=== PATIENT | male | born 1975 | race Two or more races ===

== ENCOUNTER 2024-11-22 12:23 | Inpatient (IN) | payer MEDICAID ==
[~2024-11-22] VITALS: Ht 177.8 cm; Wt 107.0 kg
[2024-11-22 13:18] LABS: BASOPHILS % (AUTO) 0.6 % (0.0-2.0); EOSINOPHILS # (AUTO) 0.1 K/uL (0.0-0.7); EOSINOPHILS % (AUTO) 1.2 % (0.0-6.0); HEMATOCRIT 50 % (39-51); LYMPHOCYTES # (AUTO) 1.3 K/uL (0.8-4.8); LYMPHOCYTES % (AUTO) 19.2 % (20.0-44.0); MEAN CORPUSCULAR HEMOGLOBIN 31 PG (26.0-33.0); MEAN CORPUSCULAR HGB CONC 34 g/dl (31.0-36.0); MEAN CORPUSCULAR VOLUME 90 fL (80-96); MONOCYTES # (AUTO) 0.7 K/uL (0.1-1.30); MONOCYTES % (AUTO) 9.3 % (2.0-12.0); NEUTROPHILS # (AUTO) 4.9 K/uL (1.8-8.9); NEUTROPHILS % (AUTO) 69.7 % (43.0-81.0); PLATELET COUNT (AUTO) 184 K/uL (150-450); RED BLOOD CELL COUNT(AUTO) 5.54 MIL/uL (4.5-6.0); RED CELL DISTRIBUTION WIDTH 15.5 % (11.5-15.0)
[2024-11-22 13:28] LABS: CALCIUM, SERUM 9.1 mg/dL (8.5-10.1); CARBON DIOXIDE 28 mmol/L (21-32); CHLORIDE 101 mmol/L (98-107); CREATININE 0.8 mg/dL (0.6-1.3); GLUCOSE 120 mg/dL (74-106); SODIUM SERUM 137 mmol/L (136-145); UREA NITROGEN, BLOOD 9 mg/dL (7-18)
[2024-11-22] MEDS: IV NS 0.9% 1,000 ML BAG IV ONE ×2 (13:30→14:30)
[2024-11-22 13:42] LABS: LACTIC ACID 4.3 mmol/L (0.4-2.0)
[2024-11-22 13:43] LABS: INR 1.21 (0.91-1.10); PROTHROMBIN TIME 12.4 SECS (9.2-11.1)
[2024-11-22 13:51] LABS: ALANINE AMINOTRANSFERASE 38 U/L (12-78); ALBUMIN 2.8 g/dL (3.4-5.0); ALKALINE PHOSPHATASE 126 U/L (46-116); ASPARTATE AMINOTRANSFERASE 34 U/L (15-37); BILIRUBIN,DIRECT 0.4 mg/dL (0.0-0.2); BILIRUBIN,TOTAL 1.3 mg/dL (0.2-1.0); TOTAL PROTEIN, SERUM 7.5 g/dL (6.4-8.2)
[2024-11-22] MEDS: AZITHROMYCIN 250 MG TABLET PO ONE (15:18)
[2024-11-22] MEDS ORDERED: MAG HYDROX/AL HYDROX/SIMETH 30 ML UDC PO PRN (17:00)
[2024-11-22] MEDS ORDERED: MAGNESIUM HYDROXIDE 30 ML UDC PO PRN (17:00)
[2024-11-22] MEDS: IV NS 0.9% 1,000 ML IV PRN (17:53)
[2024-11-22] MEDS: PROPRANOLOL HCL 10 MG TABLET PO SCH (17:54)
[2024-11-22] MEDS: ENOXAPARIN SODIUM 40 MG/0.4 ML DISP.SYRIN SQ SCH (17:55)
[2024-11-22 20:00] VITALS: BP 121/90; TEMP 97.7; O2SAT 93
[2024-11-23 04:00] VITALS: BP 122/88; TEMP 98.2; O2SAT 98
[2024-11-23 06:23] LABS: BASOPHILS % (AUTO) 0.6 % (0.0-2.0); EOSINOPHILS # (AUTO) 0.1 K/uL (0.0-0.7); EOSINOPHILS % (AUTO) 2.1 % (0.0-6.0); HEMATOCRIT 44 % (39-51); HEMOGLOBIN 14.9 g/dL (13.5-17.5); LYMPHOCYTES # (AUTO) 1.5 K/uL (0.8-4.8); LYMPHOCYTES % (AUTO) 22.6 % (20.0-44.0); MEAN CORPUSCULAR HEMOGLOBIN 30 PG (26.0-33.0); MEAN CORPUSCULAR HGB CONC 34 g/dl (31.0-36.0); MEAN CORPUSCULAR VOLUME 90 fL (80-96); MONOCYTES # (AUTO) 0.7 K/uL (0.1-1.30); MONOCYTES % (AUTO) 9.7 % (2.0-12.0); NEUTROPHILS # (AUTO) 4.4 K/uL (1.8-8.9); PLATELET COUNT (AUTO) 160 K/uL (150-450); RED BLOOD CELL COUNT(AUTO) 4.93 MIL/uL (4.5-6.0); RED CELL DISTRIBUTION WIDTH 14.9 % (11.5-15.0); WHITE BLOOD COUNT (AUTO) 6.8 K/uL (4.3-11.0)
[2024-11-23 06:52] LABS: CALCIUM, SERUM 8.4 mg/dL (8.5-10.1); CREATININE 0.7 mg/dL (0.6-1.3); MAGNESIUM 1.6 mg/dL (1.8-2.4)
[2024-11-23 08:00] VITALS: BP 114/79; TEMP 97.7; O2SAT 95
[2024-11-23 08:56] LABS: ALBUMIN 2.5 g/dL (3.4-5.0); BILIRUBIN,DIRECT 0.5 mg/dL (0.0-0.2); BILIRUBIN,TOTAL 1.5 mg/dL (0.2-1.0); TOTAL PROTEIN, SERUM 6.1 g/dL (6.4-8.2)
[2024-11-23] MEDS: MAGNESIUM OXIDE 400 MG TABLET PO ONE (09:01)
[2024-11-23 16:00] VITALS: BP 154/99; TEMP 97.5; O2SAT 94
[2024-11-23 20:00] VITALS: BP 130/90; TEMP 97.7; O2SAT 97
[2024-11-24] VITALS (7 sets, daily range): BP systolic 118–139; BP diastolic 78–94; TEMP 97.5–98.4; O2SAT 96–99
[2024-11-24 05:13] LABS: HBSAG SCREEN Negative (Negative); HEPATITIS A AB, IgM Negative (Negative); HEPATITIS B CORE AB, IgM Negative (Negative)
[2024-11-24] MEDS: IPRATROPIUM NEB FS 0.5 MG/2.5 ML AMPUL.NEB NEB PRN (10:21)
[2024-11-24] MEDS: ALBUTEROL FS 2.5 MG/0.5 ML VIAL.NEB NEB PRN (10:21)
[2024-11-24 12:08] LABS: THYROID STIMULATING HORMONE 2.42 uIU/mL (0.358-3.74)
[2024-11-24] MEDS: ACETAMINOPHEN 325 MG TABLET PO PRN (14:26)
[2024-11-24] MEDS ORDERED: PHENOL/SODIUM PHENOLATE 1 LOZ LOZENGE PO PRN (15:30)
[2024-11-24] MEDS: MENTHOL/CETYLPYRD (CEPACOL) 1 LOZ LOZENGE PO PRN (18:20)
[2024-11-25] VITALS (70 sets, daily range): BP systolic 49–155; BP diastolic 34–98; TEMP 97.9–98.1; O2SAT 94–100
[2024-11-25] MEDS: NOREPINEPHRINE 8 MG in IV D5W 242 ML IV PRN (08:20)
[2024-11-25 08:53] LABS: BASOPHILS # (AUTO) 0.1 K/uL (0.0-0.2); BASOPHILS % (AUTO) 0.6 % (0.0-2.0); HEMATOCRIT 50 % (39-51); HEMOGLOBIN 16.6 g/dL (13.5-17.5); LYMPHOCYTES # (AUTO) 0.4 K/uL (0.8-4.8); LYMPHOCYTES % (AUTO) 3.9 % (20.0-44.0); MEAN CORPUSCULAR HEMOGLOBIN 30 PG (26.0-33.0); MEAN CORPUSCULAR HGB CONC 33 g/dl (31.0-36.0); MEAN CORPUSCULAR VOLUME 90 fL (80-96); MONOCYTES # (AUTO) 0.7 K/uL (0.1-1.30); MONOCYTES % (AUTO) 6.3 % (2.0-12.0); NEUTROPHILS # (AUTO) 10.2 K/uL (1.8-8.9); NEUTROPHILS % (AUTO) 89.2 % (43.0-81.0); PLATELET COUNT (AUTO) 299 K/uL (150-450); RED BLOOD CELL COUNT(AUTO) 5.59 MIL/uL (4.5-6.0); RED CELL DISTRIBUTION WIDTH 15.1 % (11.5-15.0); WHITE BLOOD COUNT (AUTO) 11.4 K/uL (4.3-11.0)
[2024-11-25 09:01] LABS: CALCIUM, SERUM 9.1 mg/dL (8.5-10.1); POTASSIUM 6.1 mmol/L (3.5-5.1)
[2024-11-25 09:03] LABS: ERYTHROCYTE SEDIMENTATION RATE 14 MM/HR (0-15)
[2024-11-25 09:13] LABS: ALBUMIN 2.7 g/dL (3.4-5.0); BILIRUBIN,DIRECT 0.5 mg/dL (0.0-0.2); BILIRUBIN,TOTAL 1.1 mg/dL (0.2-1.0); TOTAL PROTEIN, SERUM 6.9 g/dL (6.4-8.2)
[2024-11-25] MEDS ORDERED: ALBUTEROL FS 2.5 MG/0.5 ML VIAL.NEB NEB PRN (10:00)
[2024-11-25] MEDS ORDERED: IPRATROPIUM NEB FS 0.5 MG/2.5 ML AMPUL.NEB NEB PRN (10:00)
[2024-11-25 10:02] LABS: ABG PCO2 30.5 mmHg (35.0-48.0); ABG PO2 55.1 mmHg (83.0-108.0); ABG TOTAL HEMOGLOBIN 17.2 G/dL (13.5-17.5); COHb 0.4 % (0.5-1.5); MetHb 0.2 % (0.0-1.5); O2Hb 93.4 % (94.0-97.0); PEEP,BG 0 cm H2O; SITE, ABG RIGHT RADIAL; VT, ABG 500 mL
[2024-11-25 10:02] LABS: ABG BASE EXCESS -0.3 mmol/L (-2.0-3.0); ABG BASE EXCESS -1.5 mmol/L (-2.0-3.0); ABG OXYGEN SATURATION 97.6 % (94.0-98.0); ABG OXYGEN SATURATION 98.8 % (94.0-98.0); ABG PCO2 160.1 mmHg (35.0-48.0); ABG PCO2 46.2 mmHg (35.0-48.0); ABG PH 7.344 (7.350-7.450); ABG PO2 128.2 mmHg (83.0-108.0); ABG PO2 160.2 mmHg (83.0-108.0); ABG TOTAL HEMOGLOBIN 17.4 G/dL (13.5-17.5); COHb 0.2 % (0.5-1.5); COHb 0.4 % (0.5-1.5); MetHb 0.4 % (0.0-1.5); MetHb 0.5 % (0.0-1.5); O2Hb 96.9 % (94.0-97.0); SITE, ABG LEFT RADIAL; SITE, ABG RIGHT RADIAL
[2024-11-25] MEDS: FUROSEMIDE 40 MG/4 ML VIAL IV SCH (10:55)
[2024-11-25 11:03] LABS: SERUM AMMONIA 31 umol/L (11-32)
[2024-11-25 11:04] LABS: CALCIUM, SERUM 8.8 mg/dL (8.5-10.1); CREATININE 0.9 mg/dL (0.6-1.3); POTASSIUM 4.5 mmol/L (3.5-5.1)
[2024-11-25] MEDS: IPRATROPIUM NEB FS 0.5 MG/2.5 ML AMPUL.NEB NEB SCH (11:14)
[2024-11-25] MEDS: ALBUTEROL HALF STRENGTH 1.25 MG/3 ML VIAL.NEB NEB SCH (11:14)
[2024-11-25] MEDS: methylPREDNISolone SOD SUCC 125 MG/2ML VIAL IV ONE (11:19)
[2024-11-25] MEDS ORDERED: MAGNESIUM HYDROXIDE 30 ML UDC GT PRN (12:24)
[2024-11-25] MEDS ORDERED: MAG HYDROX/AL HYDROX/SIMETH 30 ML UDC GT PRN (12:24)
[2024-11-25] MEDS ORDERED: PHARMACY TO CHANGE PO MEDS TO GT/NG XX PRN (12:30)
[2024-11-25] MEDS ORDERED: ACETAMINOPHEN 650 MG/20.3 ML UDC PO PRN (12:30)
[2024-11-25] MEDS ORDERED: ETOMIDATE 2 MG/ML VIAL IV ONE (12:51)
[2024-11-25 13:17] LABS: THYROID STIMULATING HORMONE 0.9 uIU/mL (0.358-3.74)
[2024-11-25 15:02] LABS: ABG BASE EXCESS 1.5 mmol/L (-2.0-3.0); ABG OXYGEN SATURATION 97.9 % (94.0-98.0); ABG PCO2 44.1 mmHg (35.0-48.0); ABG PH 7.401 (7.350-7.450); ABG TOTAL HEMOGLOBIN 17.3 G/dL (13.5-17.5); COHb 0.3 % (0.5-1.5); MetHb 0.3 % (0.0-1.5); O2Hb 97.3 % (94.0-97.0); PEEP,BG 8 cm H2O; SITE, ABG RIGHT RADIAL; VT, ABG 500 mL
[2024-11-25] MEDS: methylPREDNISolone SOD SUCC 125 MG/2ML VIAL IV SCH (16:53)
[2024-11-25] MEDS: PROPOFOL 100 ML IV PRN (20:04)
[2024-11-25] MEDS: PROPRANOLOL HCL 10 MG TABLET GT SCH (20:47)
[2024-11-26] VITALS (84 sets, daily range): BP systolic 69–122; BP diastolic 58–92; TEMP 96.5–99.2; O2SAT 95–100
[2024-11-26 04:40] LABS: BASOPHILS % (AUTO) 0.1 % (0.0-2.0); CALCIUM, SERUM 9.4 mg/dL (8.5-10.1); CREATININE 1.1 mg/dL (0.6-1.3); HEMATOCRIT 45 % (39-51); HEMOGLOBIN 15.2 g/dL (13.5-17.5); LYMPHOCYTES # (AUTO) 0.8 K/uL (0.8-4.8); MEAN CORPUSCULAR HEMOGLOBIN 31 PG (26.0-33.0); MEAN CORPUSCULAR HGB CONC 34 g/dl (31.0-36.0); MEAN CORPUSCULAR VOLUME 89 fL (80-96); MONOCYTES # (AUTO) 1.2 K/uL (0.1-1.30); MONOCYTES % (AUTO) 6.3 % (2.0-12.0); NEUTROPHILS # (AUTO) 17.6 K/uL (1.8-8.9); NEUTROPHILS % (AUTO) 89.6 % (43.0-81.0); PHOSPHORUS 2.7 mg/dL (2.5-4.9); PLATELET COUNT (AUTO) 225 K/uL (150-450); POTASSIUM 3.8 mmol/L (3.5-5.1); RED CELL DISTRIBUTION WIDTH 15.2 % (11.5-15.0); WHITE BLOOD COUNT (AUTO) 19.7 K/uL (4.3-11.0)
[2024-11-26 08:08] LABS: ABG BASE EXCESS 3.7 mmol/L (-2.0-3.0); ABG OXYGEN SATURATION 98.1 % (94.0-98.0); ABG PCO2 36.8 mmHg (35.0-48.0); ABG PH 7.483 (7.350-7.450); ABG PO2 105.1 mmHg (83.0-108.0); ABG TOTAL HEMOGLOBIN 16.3 G/dL (13.5-17.5); COHb 0.3 % (0.5-1.5); MetHb 0.4 % (0.0-1.5); O2Hb 97.4 % (94.0-97.0); PEEP,BG 5 cm H2O; SITE, ABG RIGHT RADIAL
[2024-11-26] MEDS ORDERED: DC PROPOFOL WHEN EXTUBATED XX PRN (08:45)
[2024-11-26] MEDS: CEFEPIME 2 GM in IV D5W 100 ML IV SCH (10:53)
[2024-11-26 11:17] LABS: ABG BASE EXCESS -0.8 mmol/L (-2.0-3.0); ABG OXYGEN SATURATION 97.6 % (94.0-98.0); ABG PCO2 190.3 mmHg (35.0-48.0); ABG PH 6.932 (7.350-7.450); ABG PO2 154.8 mmHg (83.0-108.0); ABG TOTAL HEMOGLOBIN 17.7 G/dL (13.5-17.5); COHb 0.3 % (0.5-1.5); MetHb 0.7 % (0.0-1.5); O2Hb 96.6 % (94.0-97.0); SITE, ABG RIGHT RADIAL
[2024-11-26] MEDS ORDERED: ETOMIDATE 2 MG/ML VIAL IV ONE (12:57)
[2024-11-26 14:16] LABS: ABG BASE EXCESS 6.7 mmol/L (-2.0-3.0); ABG PCO2 31.8 mmHg (35.0-48.0); ABG PH 7.567 (7.350-7.450); ABG PO2 79.2 mmHg (83.0-108.0); ABG TOTAL HEMOGLOBIN 16.3 G/dL (13.5-17.5); COHb 0.5 % (0.5-1.5); MetHb 0.2 % (0.0-1.5); O2Hb 96.3 % (94.0-97.0); PEEP,BG 5 cm H2O; SITE, ABG RIGHT RADIAL; VT, ABG 500 mL
[2024-11-26] MEDS: pyRIDostigmine BROMIDE 60 MG TABLET GT SCH (18:34)
[2024-11-27] VITALS (84 sets, daily range): BP systolic 85–117; BP diastolic 53–72; TEMP 98.6–99.8; O2SAT 85–100
[2024-11-27 01:07] LABS: FOLIC ACID 4.5 ng/mL (>3.0)
[2024-11-27 05:26] LABS: NEUTROPHILS % (AUTO) 92.4 % (43.0-81.0)
[2024-11-27 05:29] LABS: BASOPHILS # (AUTO) 0.1 K/uL (0.0-0.2); BASOPHILS % (AUTO) 0.7 % (0.0-2.0); HEMATOCRIT 41 % (39-51); HEMOGLOBIN 13.7 g/dL (13.5-17.5); LYMPHOCYTES # (AUTO) 0.5 K/uL (0.8-4.8); LYMPHOCYTES % (AUTO) 2.9 % (20.0-44.0); MEAN CORPUSCULAR HEMOGLOBIN 30 PG (26.0-33.0); MEAN CORPUSCULAR HGB CONC 34 g/dl (31.0-36.0); MEAN CORPUSCULAR VOLUME 89 fL (80-96); MONOCYTES # (AUTO) 0.7 K/uL (0.1-1.30); NEUTROPHILS # (AUTO) 16.3 K/uL (1.8-8.9); PLATELET COUNT (AUTO) 135 K/uL (150-450); RED BLOOD CELL COUNT(AUTO) 4.56 MIL/uL (4.5-6.0); RED CELL DISTRIBUTION WIDTH 15.3 % (11.5-15.0); WHITE BLOOD COUNT (AUTO) 17.6 K/uL (4.3-11.0)
[2024-11-27 05:35] LABS: CALCIUM, SERUM 8.9 mg/dL (8.5-10.1); CREATININE 0.9 mg/dL (0.6-1.3); MAGNESIUM 2.4 mg/dL (1.8-2.4); PHOSPHORUS 1.8 mg/dL (2.5-4.9); POTASSIUM 3.8 mmol/L (3.5-5.1)
[2024-11-27 07:26] LABS: ABG OXYGEN SATURATION 98.1 % (94.0-98.0); ABG PH 7.492 (7.350-7.450); ABG PO2 108.1 mmHg (83.0-108.0); ABG TOTAL HEMOGLOBIN 14.8 G/dL (13.5-17.5); COHb 0.3 % (0.5-1.5); MetHb 0.2 % (0.0-1.5); O2Hb 97.6 % (94.0-97.0); PEEP,BG 5 cm H2O; SITE, ABG LEFT RADIAL; VT, ABG 500 mL
[2024-11-27] MEDS: IV D5/ 0.9% NACL 1,000 ML IV PRN (09:13)
[2024-11-27] MEDS ORDERED: IGA AVG IV SCH ×2 (12:00→12:56)
[2024-11-27] MEDS ORDERED: GLY IV SCH ×2 (12:00→12:56)
[2024-11-27] MEDS ORDERED: IMMUNE GLOBUL IV SCH ×2 (12:00→12:56)
[2024-11-27] MEDS: GLY IV SCH (13:11)
[2024-11-27] MEDS: IMMUNE GLOBUL IV SCH (13:11)
[2024-11-27] MEDS: IGA AVG IV SCH (13:11)
[2024-11-27] MEDS: JEVITY 1.2 CAL 1,000 ML BOTTLE GT PRN (13:29)
[2024-11-27 14:11] LABS: *ANA ANTI-CENTROMERE B AB <0.2 AI (0.0-0.9); *ANA ANTI-DNA(DS) AB, QN <1 IU/mL (0-9); *ANA ANTI-JO-1 <0.2 AI (0.0-0.9); *ANA ANTICHROMATIN ANTIBODY <0.2 AI (0.0-0.9); *ANA RNP ANTIBODIES <0.2 AI (0.0-0.9); *ANA SJOGREN'S ANTI-SS-A <0.2 AI (0.0-0.9); *ANA SJOGREN'S ANTI-SS-B <0.2 AI (0.0-0.9); *ANAANTI-SCLERODERMA-70 AB <0.2 AI (0.0-0.9); *ANASMITH AB <0.2 AI (0.0-0.9)
[2024-11-27] MEDS: NEUTRA PHOS 1 POWD.PACKET NG ONE (16:21)
[2024-11-27] MEDS ORDERED: PROPOFOL 100 ML IV PRN (19:00)
[2024-11-27 20:14] LABS: ABG BASE EXCESS 3.2 mmol/L (-2.0-3.0); ABG PCO2 37.3 mmHg (35.0-48.0); ABG PH 7.474 (7.350-7.450); ABG PO2 177.7 mmHg (83.0-108.0); ABG TOTAL HEMOGLOBIN 13.2 G/dL (13.5-17.5); COHb 0.2 % (0.5-1.5); MetHb 0.2 % (0.0-1.5); O2Hb 98.6 % (94.0-97.0); PEEP,BG 8 cm H2O; SITE, ABG RIGHT BRACHIAL; VT, ABG 500 mL
[2024-11-28] VITALS (29 sets, daily range): BP systolic 91–109; BP diastolic 58–74; TEMP 97.4–99.8; O2SAT 98–100
[2024-11-28 04:05] LABS: BASOPHILS % (AUTO) 0.2 % (0.0-2.0); HEMATOCRIT 38 % (39-51); HEMOGLOBIN 12.9 g/dL (13.5-17.5); LYMPHOCYTES # (AUTO) 0.2 K/uL (0.8-4.8); LYMPHOCYTES % (AUTO) 2.8 % (20.0-44.0); MEAN CORPUSCULAR HEMOGLOBIN 30 PG (26.0-33.0); MEAN CORPUSCULAR HGB CONC 34 g/dl (31.0-36.0); MEAN CORPUSCULAR VOLUME 90 fL (80-96); MONOCYTES # (AUTO) 0.5 K/uL (0.1-1.30); MONOCYTES % (AUTO) 5.8 % (2.0-12.0); NEUTROPHILS # (AUTO) 7.9 K/uL (1.8-8.9); NEUTROPHILS % (AUTO) 91.2 % (43.0-81.0); PLATELET COUNT (AUTO) 87 K/uL (150-450); RED BLOOD CELL COUNT(AUTO) 4.27 MIL/uL (4.5-6.0); RED CELL DISTRIBUTION WIDTH 14.9 % (11.5-15.0); WHITE BLOOD COUNT (AUTO) 8.7 K/uL (4.3-11.0)
[2024-11-28 04:27] LABS: CALCIUM, SERUM 8.6 mg/dL (8.5-10.1); CREATININE 0.7 mg/dL (0.6-1.3); MAGNESIUM 2.6 mg/dL (1.8-2.4); PHOSPHORUS 2.6 mg/dL (2.5-4.9); POTASSIUM 3.8 mmol/L (3.5-5.1)
[2024-11-28 04:42] LABS: BASOPHILS % (MANUAL) 0 % (0.0-2.0); EOSINOPHILS % (MANUAL) 0 % (0-4); LYMPHOCYTES % (MANUAL) 5 % (16-48); MONOCYTES % (MANUAL) 8 % (0-11.0); NEUTROPHILS % (MANUAL) 87 (42-76); PLATELET ESTIMATE DECREASED
[2024-11-29] VITALS (24 sets, daily range): BP systolic 86–112; BP diastolic 55–73; TEMP 97.2–98.5; O2SAT 96–100
[2024-11-29 04:40] LABS: BASOPHILS % (AUTO) 0.2 % (0.0-2.0); HEMATOCRIT 35 % (39-51); HEMOGLOBIN 11.9 g/dL (13.5-17.5); LYMPHOCYTES # (AUTO) 0.3 K/uL (0.8-4.8); LYMPHOCYTES % (AUTO) 3.5 % (20.0-44.0); MEAN CORPUSCULAR HEMOGLOBIN 31 PG (26.0-33.0); MEAN CORPUSCULAR HGB CONC 34 g/dl (31.0-36.0); MEAN CORPUSCULAR VOLUME 90 fL (80-96); MONOCYTES # (AUTO) 0.5 K/uL (0.1-1.30); MONOCYTES % (AUTO) 6.4 % (2.0-12.0); NEUTROPHILS # (AUTO) 6.7 K/uL (1.8-8.9); NEUTROPHILS % (AUTO) 89.9 % (43.0-81.0); PLATELET COUNT (AUTO) 79 K/uL (150-450); RED BLOOD CELL COUNT(AUTO) 3.85 MIL/uL (4.5-6.0); RED CELL DISTRIBUTION WIDTH 14.9 % (11.5-15.0); WHITE BLOOD COUNT (AUTO) 7.4 K/uL (4.3-11.0)
[2024-11-29 04:48] LABS: CALCIUM, SERUM 8.5 mg/dL (8.5-10.1); CREATININE 0.8 mg/dL (0.6-1.3); MAGNESIUM 2.4 mg/dL (1.8-2.4); PHOSPHORUS 2.6 mg/dL (2.5-4.9); POTASSIUM 3.8 mmol/L (3.5-5.1)
[2024-11-29 06:16] LABS: ANISOCYTOSIS 1+; BASOPHILS % (MANUAL) 0 % (0.0-2.0); EOSINOPHILS % (MANUAL) 0 % (0-4); LYMPHOCYTES % (MANUAL) 6 % (16-48); MONOCYTES % (MANUAL) 10 % (0-11.0); NEUTROPHILS % (MANUAL) 84 (42-76); PLATELET ESTIMATE DECREASED
[2024-11-29 08:09] LABS: IMMUNOGLOBULIN A, SERUM 275 mg/dL (90-386); IMMUNOGLOBULIN G, SERUM 1740 mg/dL (603-1613); IMMUNOGLOBULIN M, SERUM 226 mg/dL (20-172)
[2024-11-29] MEDS: IGA AVG IV SCH (21:00)
[2024-11-29] MEDS: GLY IV SCH (21:00)
[2024-11-29] MEDS: IMMUNE GLOBUL IV SCH (21:00)
[2024-11-30] VITALS (24 sets, daily range): BP systolic 85–122; BP diastolic 55–71; TEMP 98.1–98.7; O2SAT 96–99
[2024-11-30 10:34] LABS: ABG BASE EXCESS 3.2 mmol/L (-2.0-3.0); ABG OXYGEN SATURATION 95.6 % (94.0-98.0); ABG PCO2 28.6 mmHg (35.0-48.0); ABG PH 7.555 (7.350-7.450); ABG PO2 75.1 mmHg (83.0-108.0); ABG TOTAL HEMOGLOBIN 12.4 G/dL (13.5-17.5); COHb 0.3 % (0.5-1.5); MetHb 0.2 % (0.0-1.5); O2Hb 95.1 % (94.0-97.0); PEEP,BG 5 cm H2O; SITE, ABG RIGHT RADIAL
[2024-11-30 14:28] LABS: ABG BASE EXCESS 2.3 mmol/L (-2.0-3.0); ABG OXYGEN SATURATION 95.6 % (94.0-98.0); ABG PCO2 32.2 mmHg (35.0-48.0); ABG PH 7.506 (7.350-7.450); ABG PO2 79.4 mmHg (83.0-108.0); ABG TOTAL HEMOGLOBIN 12.2 G/dL (13.5-17.5); COHb 0.3 % (0.5-1.5); MetHb 0.3 % (0.0-1.5); PEEP,BG 5 cm H2O; SITE, ABG RIGHT RADIAL
[2024-11-30] MEDS: IMMUNE GLOBUL IV SCH (15:44)
[2024-11-30] MEDS: IGA AVG IV SCH (15:44)
[2024-11-30] MEDS: GLY IV SCH (15:44)
[2024-11-30 20:07] LABS: VITAMIN B1 THIAMINE,WB 121.5 nmol/L (66.5-200.0)
[2024-12-01] VITALS (24 sets, daily range): BP systolic 94–128; BP diastolic 58–93; TEMP 97.9–98.5; O2SAT 90–100
[2024-12-01] MEDS: IGA AVG IV SCH (09:32)
[2024-12-01] MEDS: IMMUNE GLOBUL IV SCH (09:32)
[2024-12-01] MEDS: GLY IV SCH (09:32)
[2024-12-01] MEDS ORDERED: LACT-209 GT (14:37)
[2024-12-01] MEDS ORDERED: ENOX40DI SQ (14:37)
[2024-12-01] MEDS ORDERED: CEFE2FRO IV (14:37)
[2024-12-01] MEDS ORDERED: PROP10TA68 GT (14:37)
[2024-12-01] MEDS ORDERED: PYRI60TA2 GT (14:37)
[2024-12-01] MEDS ORDERED: METH125V14 IV (14:37)
[2024-12-02] VITALS (25 sets, daily range): BP systolic 92–118; BP diastolic 54–104; TEMP 97.7–98.4; O2SAT 94–100
[2024-12-03] VITALS (31 sets, daily range): BP systolic 67–120; BP diastolic 52–77; TEMP 98–98.6; O2SAT 96–100
[2024-12-03 05:27] LABS: BASOPHILS % (AUTO) 0.1 % (0.0-2.0); HEMATOCRIT 39 % (39-51); LYMPHOCYTES # (AUTO) 0.2 K/uL (0.8-4.8); LYMPHOCYTES % (AUTO) 2.4 % (20.0-44.0); MEAN CORPUSCULAR HEMOGLOBIN 31 PG (26.0-33.0); MEAN CORPUSCULAR HGB CONC 34 g/dl (31.0-36.0); MEAN CORPUSCULAR VOLUME 92 fL (80-96); MONOCYTES # (AUTO) 0.8 K/uL (0.1-1.30); MONOCYTES % (AUTO) 7.8 % (2.0-12.0); NEUTROPHILS # (AUTO) 9.1 K/uL (1.8-8.9); NEUTROPHILS % (AUTO) 89.7 % (43.0-81.0); PLATELET COUNT (AUTO) 85 K/uL (150-450); RED BLOOD CELL COUNT(AUTO) 4.17 MIL/uL (4.5-6.0); RED CELL DISTRIBUTION WIDTH 15.4 % (11.5-15.0); WHITE BLOOD COUNT (AUTO) 10.2 K/uL (4.3-11.0)
[2024-12-03 05:31] LABS: ANISOCYTOSIS 1+; BASOPHILS % (MANUAL) 0 % (0.0-2.0); EOSINOPHILS % (MANUAL) 0 % (0-4); LYMPHOCYTES % (MANUAL) 5 % (16-48); MONOCYTES % (MANUAL) 8 % (0-11.0); NEUTROPHILS % (MANUAL) 87 (42-76); PLATELET ESTIMATE DECREASED
[2024-12-03 05:59] LABS: CALCIUM, SERUM 7.9 mg/dL (8.5-10.1); CREATININE 0.6 mg/dL (0.6-1.3); MAGNESIUM 2.4 mg/dL (1.8-2.4); POTASSIUM 4.5 mmol/L (3.5-5.1)
[2024-12-03 13:33] LABS: ABG BASE EXCESS 0.9 mmol/L (-2.0-3.0); ABG PCO2 30.5 mmHg (35.0-48.0); ABG PH 7.502 (7.350-7.450); ABG PO2 110.1 mmHg (83.0-108.0); ABG TOTAL HEMOGLOBIN 11.8 G/dL (13.5-17.5); COHb 0.3 % (0.5-1.5); MetHb 0.1 % (0.0-1.5); O2Hb 97.6 % (94.0-97.0); SITE, ABG RIGHT RADIAL
[2024-12-03 13:34] LABS: ABG BASE EXCESS 1.2 mmol/L (-2.0-3.0); ABG OXYGEN SATURATION 98.1 % (94.0-98.0); ABG PCO2 32.5 mmHg (35.0-48.0); ABG PH 7.488 (7.350-7.450); ABG PO2 113.6 mmHg (83.0-108.0); ABG TOTAL HEMOGLOBIN 12.1 G/dL (13.5-17.5); COHb 0.3 % (0.5-1.5); MetHb 0.2 % (0.0-1.5); O2Hb 97.6 % (94.0-97.0)
[2024-12-03 16:20] LABS: ABG BASE EXCESS 0.5 mmol/L (-2.0-3.0); ABG OXYGEN SATURATION 96.5 % (94.0-98.0); ABG PCO2 36.8 mmHg (35.0-48.0); ABG PO2 94.1 mmHg (83.0-108.0); ABG TOTAL HEMOGLOBIN 12.1 G/dL (13.5-17.5); COHb 0.3 % (0.5-1.5); MetHb 0.3 % (0.0-1.5); O2Hb 95.9 % (94.0-97.0); SITE, ABG RIGHT RADIAL
[2024-12-03 22:10] LABS: VITAMIN B6 5.9 ug/L (3.4-65.2)
[2024-12-03] MEDS: NOREPINEPHRINE 8MG/250ML RTU 250 ML IV ONE (23:11)
[2024-12-03] MEDS: NOREPINEPHRINE 8 MG in IV D5W 242 ML IV PRN (23:14)
[2024-12-03] MEDS: ONDANSETRON HCL/PF 4 MG/2 ML VIAL IVP PRN (23:38)
[2024-12-04] VITALS (99 sets, daily range): BP systolic 47–146; BP diastolic 32–125; TEMP 97–97.8; O2SAT 95–100
[2024-12-04 03:58] LABS: HEMOGLOBIN 9.5 g/dL (13.5-17.5)
[2024-12-04] MEDS: NOREPINEPHRINE 8MG/250ML RTU 250 ML IV ONE (05:15)
[2024-12-04 08:29] LABS: CALCIUM, SERUM 7.8 mg/dL (8.5-10.1); CREATININE 1.1 mg/dL (0.6-1.3); MAGNESIUM 2.5 mg/dL (1.8-2.4); PHOSPHORUS 5.5 mg/dL (2.5-4.9); POTASSIUM 5.8 mmol/L (3.5-5.1)
[2024-12-04] MEDS: PANTOPRAZOLE 40 MG VIAL IV SCH ×2 (08:30→10:00)
[2024-12-04 08:38] LABS: BASOPHILS % (AUTO) 0.1 % (0.0-2.0); HEMATOCRIT 32 % (39-51); HEMOGLOBIN 10.6 g/dL (13.5-17.5); LYMPHOCYTES # (AUTO) 0.7 K/uL (0.8-4.8); LYMPHOCYTES % (AUTO) 1.6 % (20.0-44.0); MEAN CORPUSCULAR HEMOGLOBIN 30 PG (26.0-33.0); MEAN CORPUSCULAR HGB CONC 33 g/dl (31.0-36.0); MEAN CORPUSCULAR VOLUME 93 fL (80-96); MONOCYTES # (AUTO) 5.4 K/uL (0.1-1.30); MONOCYTES % (AUTO) 13.6 % (2.0-12.0); NEUTROPHILS # (AUTO) 33.9 K/uL (1.8-8.9); NEUTROPHILS % (AUTO) 84.7 % (43.0-81.0); PLATELET COUNT (AUTO) 312 K/uL (150-450); RED BLOOD CELL COUNT(AUTO) 3.49 MIL/uL (4.5-6.0); RED CELL DISTRIBUTION WIDTH 15.2 % (11.5-15.0)
[2024-12-04 09:33] LABS: ABG BASE EXCESS -1.8 mmol/L (-2.0-3.0); ABG OXYGEN SATURATION 95.7 % (94.0-98.0); ABG PCO2 36.3 mmHg (35.0-48.0); ABG PH 7.409 (7.350-7.450); ABG PO2 92.2 mmHg (83.0-108.0); COHb 0.2 % (0.5-1.5); MetHb 0.2 % (0.0-1.5); O2Hb 95.3 % (94.0-97.0); SITE, ABG LEFT RADIAL
[2024-12-04 09:52] LABS: LYMPHOCYTES % (MANUAL) 2 % (16-48); MONOCYTES % (MANUAL) 6 % (0-11.0); NEUTROPHILS % (MANUAL) 92 (42-76); PLATELET ESTIMATE ADEQUATE
[2024-12-04 09:53] LABS: ANISOCYTOSIS 1+
[2024-12-04] MEDS: IV NS 0.9% 500 ML IV ONE (10:19)
[2024-12-04] MEDS: VANCOMYCIN 1 GM in IV D5W 250 ML IV ONE (10:19)
[2024-12-04] MEDS ORDERED: FUROSEMIDE 40 MG/4 ML VIAL IV ONE (10:30)
[2024-12-04] MEDS: PEG 3350/NA SULF,BICARB,CL/KCL 4,000 ML BOTTLE PO ONE (11:00)
[2024-12-04] MEDS: PHENYLEPHRINE 100 MG in IV NS 0.9% 240 ML IV PRN (12:12)
[2024-12-04] MEDS: pyRIDostigmine BROMIDE 60 MG TABLET GT SCH (13:06)
[2024-12-04 13:19] LABS: BASOPHILS # (AUTO) 0.1 K/uL (0.0-0.2); BASOPHILS % (AUTO) 0.2 % (0.0-2.0); HEMATOCRIT 29 % (39-51); HEMOGLOBIN 9.6 g/dL (13.5-17.5); LYMPHOCYTES # (AUTO) 0.7 K/uL (0.8-4.8); LYMPHOCYTES % (AUTO) 1.6 % (20.0-44.0); MEAN CORPUSCULAR HEMOGLOBIN 30 PG (26.0-33.0); MEAN CORPUSCULAR HGB CONC 33 g/dl (31.0-36.0); MEAN CORPUSCULAR VOLUME 93 fL (80-96); MONOCYTES # (AUTO) 7.5 K/uL (0.1-1.30); MONOCYTES % (AUTO) 16.1 % (2.0-12.0); NEUTROPHILS # (AUTO) 38.3 K/uL (1.8-8.9); NEUTROPHILS % (AUTO) 82.1 % (43.0-81.0); PLATELET COUNT (AUTO) 293 K/uL (150-450); RED BLOOD CELL COUNT(AUTO) 3.15 MIL/uL (4.5-6.0); RED CELL DISTRIBUTION WIDTH 15.6 % (11.5-15.0)
[2024-12-04 13:33] LABS: CALCIUM, SERUM 7.7 mg/dL (8.5-10.1); CREATININE 1.5 mg/dL (0.6-1.3); POTASSIUM 6.1 mmol/L (3.5-5.1)
[2024-12-04 14:19] LABS: WHITE BLOOD COUNT (AUTO) 46.6 K/uL (4.3-11.0)
[2024-12-04 15:13] LABS: BAND % (MANUAL) 1 % (0.0-5.0); LYMPHOCYTES % (MANUAL) 3 % (16-48); MONOCYTES % (MANUAL) 9 % (0-11.0); NEUTROPHILS % (MANUAL) 87 (42-76); PLATELET ESTIMATE ADEQUATE
[2024-12-04 15:14] LABS: ANISOCYTOSIS 1+
[2024-12-04] MEDS: DEXTROSE 50%-WATER 50 ML DISP.SYRIN IV ONE (15:40)
[2024-12-04] MEDS: SODIUM BICARBONATE SYR 50 MEQ/50 ML DISP.SYRIN IV ONE (15:41)
[2024-12-04] MEDS: INSULIN REGULAR, HUMAN 100 UNIT/ML 10 ML VIAL IV ONE (15:42)
[2024-12-04] MEDS: CALCIUM CHLORIDE 1,000 MG/10 ML DISP.SYRIN IV ONE (15:42)
[2024-12-04] MEDS: PROPOFOL 100 ML IV PRN (16:20)
[2024-12-04] MEDS ORDERED: DEXTROSE 50%-WATER 50 ML DISP.SYRIN IV PRN (16:30)
[2024-12-04] MEDS: IV NS 0.9% 1,000 ML IV ONE (16:33)
[2024-12-04] MEDS ORDERED: Sodium Bicarbonate 100 MEQ in IV 1/2NS 1000 ML 1,000 ML IV PRN (17:00)
[2024-12-04] MEDS: INSULIN REGULAR, HUMAN 100 UNIT/ML 3 ML VIAL SQ PRN (17:10)
[2024-12-04 17:14] LABS: ABG BASE EXCESS -11.5 mmol/L (-2.0-3.0); ABG OXYGEN SATURATION 98.8 % (94.0-98.0); ABG PCO2 25.7 mmHg (35.0-48.0); ABG PH 7.323 (7.350-7.450); ABG PO2 231.7 mmHg (83.0-108.0); ABG TOTAL HEMOGLOBIN 10.4 G/dL (13.5-17.5); COHb 0.3 % (0.5-1.5); MetHb 0.4 % (0.0-1.5); O2Hb 98.1 % (94.0-97.0); SITE, ABG LEFT RADIAL; VT, ABG 500 mL
[2024-12-04] MEDS: Sodium Bicarbonate 100 MEQ in IV 1/2NS 1000 ML 1,000 ML IV SCH (17:40)
[2024-12-04] MEDS: BLOOD SUGAR DIAGNOSTIC 1 EACH STRIP IN SCH (17:51)
[2024-12-04] MEDS ORDERED: PHARMACY TO CHANGE PO MEDS TO GT/NG XX PRN (18:30)
[2024-12-04] MEDS ORDERED: ALBUTEROL FS 2.5 MG/0.5 ML VIAL.NEB NEB PRN (19:10)
[2024-12-04] MEDS ORDERED: PROPOFOL 200 MG/20 ML VIAL IV ONE (20:13)
[2024-12-04 20:18] LABS: CALCIUM, SERUM 8.3 mg/dL (8.5-10.1); CREATININE 1.4 mg/dL (0.6-1.3); POTASSIUM 5.2 mmol/L (3.5-5.1)
[2024-12-04] MEDS: VANCOMYCIN 1 GM in IV D5W 250ml IV SCH (21:31)
[2024-12-04] MEDS: MEROPENEM 500MG/NS 50 ML PB IV ONE (22:43)
[2024-12-04] MEDS: MEROPENEM 1 G in IV NS 0.9% 100 ML IV SCH (23:04)
[2024-12-05] VITALS (88 sets, daily range): BP systolic 59–149; BP diastolic 32–133; TEMP 98.5–99; O2SAT 88–100
[2024-12-05 05:03] LABS: BASOPHILS # (AUTO) 0.1 K/uL (0.0-0.2); BASOPHILS % (AUTO) 0.1 % (0.0-2.0); HEMATOCRIT 31 % (39-51); HEMOGLOBIN 10.1 g/dL (13.5-17.5); LYMPHOCYTES # (AUTO) 2.4 K/uL (0.8-4.8); LYMPHOCYTES % (AUTO) 3.9 % (20.0-44.0); MEAN CORPUSCULAR HEMOGLOBIN 28 PG (26.0-33.0); MEAN CORPUSCULAR HGB CONC 33 g/dl (31.0-36.0); MEAN CORPUSCULAR VOLUME 86 fL (80-96); MONOCYTES # (AUTO) 8.2 K/uL (0.1-1.30); MONOCYTES % (AUTO) 13.3 % (2.0-12.0); NEUTROPHILS % (AUTO) 82.7 % (43.0-81.0); PLATELET COUNT (AUTO) 240 K/uL (150-450); RED BLOOD CELL COUNT(AUTO) 3.58 MIL/uL (4.5-6.0); RED CELL DISTRIBUTION WIDTH 18.2 % (11.5-15.0)
[2024-12-05 05:16] LABS: WHITE BLOOD COUNT (AUTO) 61.7 K/uL (4.3-11.0)
[2024-12-05 05:19] LABS: CREATINE KINASE, TOTAL 58 U/L (39-308)
[2024-12-05 05:30] LABS: ALANINE AMINOTRANSFERASE 4657 U/L (12-78); ALKALINE PHOSPHATASE 87 U/L (46-116); BILIRUBIN,TOTAL 1.7 mg/dL (0.2-1.0); CALCIUM, SERUM 7.6 mg/dL (8.5-10.1); CARBON DIOXIDE 26 mmol/L (21-32); CHLORIDE 113 mmol/L (98-107); CREATININE 1.2 mg/dL (0.6-1.3); GLUCOSE 162 mg/dL (74-106); MAGNESIUM 2.1 mg/dL (1.8-2.4); PHOSPHORUS 4.2 mg/dL (2.5-4.9); POTASSIUM 4.7 mmol/L (3.5-5.1); SODIUM SERUM 147 mmol/L (136-145); TOTAL PROTEIN, SERUM 4.9 g/dL (6.4-8.2); UREA NITROGEN, BLOOD 49 mg/dL (7-18)
[2024-12-05 05:39] LABS: ALBUMIN 1.4 g/dL (3.4-5.0)
[2024-12-05 05:40] LABS: ASPARTATE AMINOTRANSFERASE > 1000 U/L (15-37); SERUM AMMONIA 148 umol/L (11-32)
[2024-12-05 05:44] LABS: ANISOCYTOSIS 1+; BAND % (MANUAL) 4 % (0.0-5.0); BASOPHILS % (MANUAL) 0 % (0.0-2.0); EOSINOPHILS % (MANUAL) 0 % (0-4); HYPOCHROMASIA FEW; LYMPHOCYTES % (MANUAL) 6 % (16-48); MONOCYTES % (MANUAL) 14 % (0-11.0); NEUTROPHILS % (MANUAL) 76 (42-76); PLATELET ESTIMATE ADEQUATE
[2024-12-05 05:45] LABS: TARGET CELLS 1+
[2024-12-05] MEDS ORDERED: LACTULOSE 10 G/15 ML UDC (PYXIS) GT PRN (06:30)
[2024-12-05 06:40] LABS: APPEARANCE,URINE CLEAR (CLEAR); BILIRUBIN,URINE NEGATIVE (NEGATIVE); BLOOD, URINE 1+ Ery/uL (NEGATIVE); COLOR,URINE YELLOW (YELLOW); KETONES,URINE NEGATIVE (NEGATIVE); LEUKOCYTE ESTERASE ,URINE NEGATIVE (NEGATIVE); NITRITE, URINE NEGATIVE (NEGATIVE); PROTEIN,URINE TRACE mg/dl (NEGATIVE); UGLUCOSE TRACE mg/dL (NEGATIVE); UROBILINOGEN,URINE 0.2 EU/dL (0.2)
[2024-12-05 06:46] LABS: CREATININE, URINE 51.9 MG/DL (30.0-125.0); URINE TOTAL PROTEIN 53.1 mg/dL (0-11.9)
[2024-12-05 06:55] LABS: ADD URINE CULTURE YES; BACTERIA,URINE Rare /HPF (None Seen); FINE GRANULAR CASTS,URINE Few /LPF (None Seen); HYALINE CASTS, URINE Few /LPF (None Seen); SQUAMOUS EPITHELIAL CELL,UR Moderate /HPF (None Seen)
[2024-12-05 06:56] LABS: EOSINOPHIL,URINE None Seen
[2024-12-05 07:40] LABS: INR 2.32 (0.91-1.10); PARTIAL THROMBOPLASTIN TIME 36.9 SEC (24.3-34.3); PROTHROMBIN TIME 23.3 SECS (9.2-11.1)
[2024-12-05] MEDS: LACTULOSE 10 G/15 ML UDC (PYXIS) GT SCH (08:56)
[2024-12-05] MEDS ORDERED: HYDROCORTISONE SOD SUCCINATE 100 MG/2 ML VIAL IV SCH (10:00)
[2024-12-05] MEDS ORDERED: IV NS 0.9% 100 ML IV PRN (10:00)
[2024-12-05] MEDS: ALBUMIN 25% 12.5 GM/50 ML BOTTLE IV ONE (10:14)
[2024-12-05] MEDS: HYDROCORTISONE SOD SUCCINATE 100 MG/2 ML VIAL IV SCH (10:57)
[2024-12-05] MEDS: IV NS 0.9% 1,000 ML BAG IV PRN (11:27)
[2024-12-05] MEDS: IV NS 0.9% 1,000 ML IV PRN (11:37)
[2024-12-06] VITALS (98 sets, daily range): BP systolic 86–119; BP diastolic 44–72; TEMP 97.1–99; O2SAT 92–100
[2024-12-06 04:58] LABS: BASOPHILS % (AUTO) 0.1 % (0.0-2.0); HEMATOCRIT 24 % (39-51); HEMOGLOBIN 7.4 g/dL (13.5-17.5); LYMPHOCYTES # (AUTO) 1.9 K/uL (0.8-4.8); LYMPHOCYTES % (AUTO) 5.5 % (20.0-44.0); MEAN CORPUSCULAR HEMOGLOBIN 28 PG (26.0-33.0); MEAN CORPUSCULAR HGB CONC 32 g/dl (31.0-36.0); MEAN CORPUSCULAR VOLUME 90 fL (80-96); MONOCYTES # (AUTO) 3.6 K/uL (0.1-1.30); MONOCYTES % (AUTO) 10.4 % (2.0-12.0); NEUTROPHILS # (AUTO) 28.8 K/uL (1.8-8.9); PLATELET COUNT (AUTO) 143 K/uL (150-450); RED BLOOD CELL COUNT(AUTO) 2.61 MIL/uL (4.5-6.0); RED CELL DISTRIBUTION WIDTH 17.4 % (11.5-15.0)
[2024-12-06 05:08] LABS: SERUM AMMONIA 99 umol/L (11-32)
[2024-12-06 05:14] LABS: MAGNESIUM 2.1 mg/dL (1.8-2.4); PHOSPHORUS 2.7 mg/dL (2.5-4.9)
[2024-12-06 05:17] LABS: ALANINE AMINOTRANSFERASE 3163 U/L (12-78); ALKALINE PHOSPHATASE 85 U/L (46-116); ASPARTATE AMINOTRANSFERASE 946 U/L (15-37); BILIRUBIN,DIRECT 1.7 mg/dL (0.0-0.2); BILIRUBIN,TOTAL 3.3 mg/dL (0.2-1.0); CARBON DIOXIDE 29 mmol/L (21-32); CHLORIDE 117 mmol/L (98-107); GLUCOSE 166 mg/dL (74-106); POTASSIUM 3.8 mmol/L (3.5-5.1); SODIUM SERUM 149 mmol/L (136-145); TOTAL PROTEIN, SERUM 4.3 g/dL (6.4-8.2); UREA NITROGEN, BLOOD 48 mg/dL (7-18)
[2024-12-06 05:22] LABS: CALCIUM, SERUM 7.3 mg/dL (8.5-10.1)
[2024-12-06 05:35] LABS: LACTIC ACID 3.3 mmol/L (0.4-2.0)
[2024-12-06 05:36] LABS: WHITE BLOOD COUNT (AUTO) 34.3 K/uL (4.3-11.0)
[2024-12-06 05:39] LABS: ALBUMIN 1.4 g/dL (3.4-5.0)
[2024-12-06 06:02] LABS: LYMPHOCYTES % (MANUAL) 5 % (16-48); MONOCYTES % (MANUAL) 4 % (0-11.0); NEUTROPHILS % (MANUAL) 91 (42-76)
[2024-12-06 06:03] LABS: ANISOCYTOSIS 2+; HYPOCHROMASIA 2+; PLATELET ESTIMATE ADEQUATE
[2024-12-06 06:07] LABS: PTH, INTACT 70 pg/mL (15-65)
[2024-12-06] MEDS ORDERED: IOHEXOL-350 100 ML VIAL IV ONE (09:40)
[2024-12-06] MEDS ORDERED: IV NS 0.9% 250 ML IV ONE (09:40)
[2024-12-06] MEDS ORDERED: ALBUMIN 25% 12.5 GM/50 ML BOTTLE IV ONE (10:00)
[2024-12-06] MEDS: VANCOMYCIN HCL 1.25 GM in IV D5W 250 ML IV SCH (10:51)
[2024-12-06] MEDS: ALBUMIN 25% 12.5 GM in PREMIX 1 EA IV ONE (11:30)
[2024-12-06] MEDS: IV 1/2NS 1000 ML 1,000 ML IV SCH (12:15)
[2024-12-06 12:26] LABS: HEMATOCRIT 21 % (39-51); MEAN CORPUSCULAR HEMOGLOBIN 29 PG (26.0-33.0); MEAN CORPUSCULAR HGB CONC 33 g/dl (31.0-36.0); MEAN CORPUSCULAR VOLUME 91 fL (80-96); PLATELET COUNT (AUTO) 109 K/uL (150-450); RED BLOOD CELL COUNT(AUTO) 2.34 MIL/uL (4.5-6.0); WHITE BLOOD COUNT (AUTO) 28.3 K/uL (4.3-11.0)
[2024-12-06 12:29] LABS: HEMOGLOBIN 6.9 g/dL (13.5-17.5)
[2024-12-06] MEDS: ACETAMINOPHEN 650 MG/20.3 ML UDC GT PRN (13:16)
[2024-12-07] VITALS (71 sets, daily range): BP systolic 90–120; BP diastolic 50–80; TEMP 97.5–98.9; O2SAT 89–100
[2024-12-07 00:23] LABS: HEMATOCRIT 25 % (39-51); HEMOGLOBIN 8.2 g/dL (13.5-17.5); MEAN CORPUSCULAR HEMOGLOBIN 30 PG (26.0-33.0); MEAN CORPUSCULAR HGB CONC 33 g/dl (31.0-36.0); MEAN CORPUSCULAR VOLUME 90 fL (80-96); PLATELET COUNT (AUTO) 73 K/uL (150-450); RED BLOOD CELL COUNT(AUTO) 2.73 MIL/uL (4.5-6.0); RED CELL DISTRIBUTION WIDTH 16.1 % (11.5-15.0); WHITE BLOOD COUNT (AUTO) 23.4 K/uL (4.3-11.0)
[2024-12-07 04:16] LABS: BASOPHILS % (AUTO) 0.1 % (0.0-2.0); HEMATOCRIT 24 % (39-51); HEMOGLOBIN 7.8 g/dL (13.5-17.5); LYMPHOCYTES # (AUTO) 0.9 K/uL (0.8-4.8); LYMPHOCYTES % (AUTO) 3.6 % (20.0-44.0); MEAN CORPUSCULAR HEMOGLOBIN 30 PG (26.0-33.0); MEAN CORPUSCULAR HGB CONC 33 g/dl (31.0-36.0); MEAN CORPUSCULAR VOLUME 91 fL (80-96); MONOCYTES # (AUTO) 1.5 K/uL (0.1-1.30); MONOCYTES % (AUTO) 5.8 % (2.0-12.0); NEUTROPHILS # (AUTO) 22.9 K/uL (1.8-8.9); NEUTROPHILS % (AUTO) 90.5 % (43.0-81.0); PLATELET COUNT (AUTO) 86 K/uL (150-450); RED BLOOD CELL COUNT(AUTO) 2.66 MIL/uL (4.5-6.0); RED CELL DISTRIBUTION WIDTH 16.1 % (11.5-15.0); WHITE BLOOD COUNT (AUTO) 25.3 K/uL (4.3-11.0)
[2024-12-07 04:40] LABS: BILIRUBIN,DIRECT 1.1 mg/dL (0.0-0.2); CALCIUM, SERUM 6.3 mg/dL (8.5-10.1); CREATININE 0.7 mg/dL (0.6-1.3); POTASSIUM 2.9 mmol/L (3.5-5.1); TOTAL PROTEIN, SERUM 3.8 g/dL (6.4-8.2)
[2024-12-07 04:45] LABS: ALBUMIN 1.4 g/dL (3.4-5.0)
[2024-12-07 04:47] LABS: ANISOCYTOSIS 1+; BAND % (MANUAL) 2 % (0.0-5.0); HYPOCHROMASIA 1+; LYMPHOCYTES % (MANUAL) 4 % (16-48); MONOCYTES % (MANUAL) 7 % (0-11.0); NEUTROPHILS % (MANUAL) 87 (42-76); PLATELET ESTIMATE DECREASED; TARGET CELLS FEW
[2024-12-07] MEDS ORDERED: POTASSIUM CHLORIDE 20 MEQ POWDER PACKET GT ONE (05:00)
[2024-12-07] MEDS: POTASSIUM CL. PREMIX PERIPHER. 50 ML IV SCH ×2 (05:23→08:26)
[2024-12-07] MEDS ORDERED: POTASSIUM CL. PREMIX PERIPHER. 50 ML IV SCH (05:30)
[2024-12-07 08:59] LABS: ABG BASE EXCESS 1.4 mmol/L (-2.0-3.0); ABG OXYGEN SATURATION 96.1 % (94.0-98.0); ABG PCO2 29.6 mmHg (35.0-48.0); ABG PH 7.522 (7.350-7.450); ABG PO2 88.6 mmHg (83.0-108.0); ABG TOTAL HEMOGLOBIN 10.4 G/dL (13.5-17.5); COHb 0.2 % (0.5-1.5); MetHb 0.5 % (0.0-1.5); O2Hb 95.4 % (94.0-97.0); PEEP,BG 0 cm H2O; SITE, ABG LEFT RADIAL; VT, ABG 500 mL
[2024-12-07] MEDS: PEG 3350/NA SULF,BICARB,CL/KCL 4,000 ML BOTTLE PO ONE (12:47)
[2024-12-07 13:07] LABS: *SPE A/G RATIO 0.5 (0.7-1.7); *SPE ALBUMIN 1.7 g/dL (2.9-4.4); *SPE ALPHA-1-GLOBULIN 0.2 g/dL (0.0-0.4); *SPE ALPHA-2-GLOBULIN 0.4 g/dL (0.4-1.0); *SPE BETA GLOBULIN 0.5 g/dL (0.7-1.3); *SPE GLOBULIN, TOTAL 3.1 g/dL (2.2-3.9); *SPE M-SPIKE Not Observed g/dL (Not Observed); *SPE PROTEIN TOTAL 4.8 g/dL (6.0-8.5)
[2024-12-07 16:22] LABS: CALCIUM, SERUM 7.2 mg/dL (8.5-10.1); CREATININE 0.7 mg/dL (0.6-1.3); POTASSIUM 3.4 mmol/L (3.5-5.1)
[2024-12-07] MEDS: IV 1/2NS 1000 ML 1,000 ML IV PRN (19:30)
[2024-12-08] VITALS (32 sets, daily range): BP systolic 91–122; BP diastolic 45–82; TEMP 97.7–98.6; O2SAT 91–99
[2024-12-08 04:42] LABS: BASOPHILS % (AUTO) 0.1 % (0.0-2.0); LYMPHOCYTES # (AUTO) 0.3 K/uL (0.8-4.8); MEAN CORPUSCULAR HEMOGLOBIN 30 PG (26.0-33.0); MEAN CORPUSCULAR HGB CONC 33 g/dl (31.0-36.0); MEAN CORPUSCULAR VOLUME 89 fL (80-96); MONOCYTES # (AUTO) 0.7 K/uL (0.1-1.30); MONOCYTES % (AUTO) 4.7 % (2.0-12.0); NEUTROPHILS # (AUTO) 13.6 K/uL (1.8-8.9); NEUTROPHILS % (AUTO) 93.2 % (43.0-81.0); RED BLOOD CELL COUNT(AUTO) 2.17 MIL/uL (4.5-6.0); RED CELL DISTRIBUTION WIDTH 17.1 % (11.5-15.0); WHITE BLOOD COUNT (AUTO) 14.5 K/uL (4.3-11.0)
[2024-12-08 05:02] LABS: BILIRUBIN,DIRECT 0.6 mg/dL (0.0-0.2); BILIRUBIN,TOTAL 1.2 mg/dL (0.2-1.0); CREATININE 0.5 mg/dL (0.6-1.3); TOTAL PROTEIN, SERUM 3.2 g/dL (6.4-8.2)
[2024-12-08 05:37] LABS: CALCIUM, SERUM 5.4 mg/dL (8.5-10.1)
[2024-12-08 05:40] LABS: HEMOGLOBIN 6.5 g/dL (13.5-17.5); POTASSIUM 2.4 mmol/L (3.5-5.1)
[2024-12-08 05:41] LABS: HEMATOCRIT 19 % (39-51); PLATELET COUNT (AUTO) 36 K/uL (150-450)
[2024-12-08 06:25] LABS: LYMPHOCYTES % (MANUAL) 2 % (16-48); MONOCYTES % (MANUAL) 3 % (0-11.0); NEUTROPHILS % (MANUAL) 95 (42-76); PLATELET ESTIMATE DECREASED
[2024-12-08 06:26] LABS: ANISOCYTOSIS 2+
[2024-12-08 06:31] LABS: MAGNESIUM 1.5 mg/dL (1.8-2.4); PHOSPHORUS 1.9 mg/dL (2.5-4.9)
[2024-12-08] MEDS: POTASSIUM CL. PREMIX PERIPHER. 50 ML IV SCH (06:42)
[2024-12-08] MEDS: Calcium Gluconate 1GM/10ML 9.3 MEQ in IV NS 0.9% 100 ML IV ONE (07:06)
[2024-12-08] MEDS: Magnesium 1GM/D5W 100ML PREMIX 100 ML IV SCH (10:35)
[2024-12-08] MEDS: IV NS 0.9% 1,000 ML IV PRN (11:29)
[2024-12-08] MEDS: HYDROCORTISONE SOD SUCCINATE 100 MG/2 ML VIAL IV SCH (12:15)
[2024-12-08 14:52] LABS: CALCIUM, SERUM 7.7 mg/dL (8.5-10.1); CREATININE 0.8 mg/dL (0.6-1.3); POTASSIUM 3.6 mmol/L (3.5-5.1)
[2024-12-08] MEDS: Sodium Phosphate 15 MMOL in IV NS 0.9% 245 ML IV SCH (15:36)
[2024-12-08 18:38] LABS: BASOPHILS # (AUTO) 0.2 K/uL (0.0-0.2); BASOPHILS % (AUTO) 0.7 % (0.0-2.0); HEMATOCRIT 34 % (39-51); HEMOGLOBIN 11.3 g/dL (13.5-17.5); LYMPHOCYTES # (AUTO) 0.3 K/uL (0.8-4.8); LYMPHOCYTES % (AUTO) 1.5 % (20.0-44.0); MEAN CORPUSCULAR HEMOGLOBIN 30 PG (26.0-33.0); MEAN CORPUSCULAR HGB CONC 33 g/dl (31.0-36.0); MEAN CORPUSCULAR VOLUME 90 fL (80-96); MONOCYTES # (AUTO) 0.8 K/uL (0.1-1.30); MONOCYTES % (AUTO) 3.4 % (2.0-12.0); NEUTROPHILS # (AUTO) 21.7 K/uL (1.8-8.9); NEUTROPHILS % (AUTO) 94.4 % (43.0-81.0); PLATELET COUNT (AUTO) 68 K/uL (150-450); RED BLOOD CELL COUNT(AUTO) 3.78 MIL/uL (4.5-6.0); RED CELL DISTRIBUTION WIDTH 16.6 % (11.5-15.0); WHITE BLOOD COUNT (AUTO) 22.9 K/uL (4.3-11.0)
[2024-12-08 19:31] LABS: ANISOCYTOSIS 1+; BAND % (MANUAL) 1 % (0.0-5.0); LYMPHOCYTES % (MANUAL) 3 % (16-48); MONOCYTES % (MANUAL) 1 % (0-11.0); NEUTROPHILS % (MANUAL) 95 (42-76); PLATELET ESTIMATE DECREASED
[2024-12-08 19:32] LABS: CALCIUM, SERUM 6.7 mg/dL (8.5-10.1); CREATININE 0.7 mg/dL (0.6-1.3); POTASSIUM 3.4 mmol/L (3.5-5.1)
[2024-12-09] VITALS (24 sets, daily range): BP systolic 98–143; BP diastolic 46–97; TEMP 97.5–98.8; O2SAT 94–100
[2024-12-09 04:57] LABS: PHOSPHORUS 3.2 mg/dL (2.5-4.9)
[2024-12-09 04:58] LABS: BASOPHILS % (AUTO) 0.1 % (0.0-2.0); HEMATOCRIT 36 % (39-51); LYMPHOCYTES # (AUTO) 0.5 K/uL (0.8-4.8); MEAN CORPUSCULAR HEMOGLOBIN 30 PG (26.0-33.0); MEAN CORPUSCULAR HGB CONC 33 g/dl (31.0-36.0); MEAN CORPUSCULAR VOLUME 90 fL (80-96); MONOCYTES # (AUTO) 1.1 K/uL (0.1-1.30); MONOCYTES % (AUTO) 4.6 % (2.0-12.0); NEUTROPHILS # (AUTO) 21.4 K/uL (1.8-8.9); NEUTROPHILS % (AUTO) 93.3 % (43.0-81.0); PLATELET COUNT (AUTO) 69 K/uL (150-450); RED BLOOD CELL COUNT(AUTO) 4.03 MIL/uL (4.5-6.0); WHITE BLOOD COUNT (AUTO) 22.9 K/uL (4.3-11.0)
[2024-12-09 05:05] LABS: BILIRUBIN,DIRECT 0.8 mg/dL (0.0-0.2); BILIRUBIN,TOTAL 1.6 mg/dL (0.2-1.0); CALCIUM, SERUM 6.6 mg/dL (8.5-10.1); CREATININE 0.7 mg/dL (0.6-1.3); POTASSIUM 2.9 mmol/L (3.5-5.1)
[2024-12-09 05:11] LABS: ALBUMIN 1.4 g/dL (3.4-5.0)
[2024-12-09 06:20] LABS: ANISOCYTOSIS 1+; BASOPHILS % (MANUAL) 0 % (0.0-2.0); EOSINOPHILS % (MANUAL) 0 % (0-4); LYMPHOCYTES % (MANUAL) 3 % (16-48); MONOCYTES % (MANUAL) 6 % (0-11.0); NEUTROPHILS % (MANUAL) 91 (42-76); PLATELET ESTIMATE DECREASED
[2024-12-09] MEDS: POTASSIUM CHLORIDE 20 MEQ POWDER PACKET PO ONE (08:26)
[2024-12-09] MEDS: POTASSIUM CL. PREMIX PERIPHER. 50 ML IV SCH (08:40)
[2024-12-09 14:38] LABS: INR 1.56 (0.91-1.10); PARTIAL THROMBOPLASTIN TIME 34.1 SEC (24.3-34.3); PROTHROMBIN TIME 16.1 SECS (9.2-11.1)
[2024-12-09] MEDS: HYDROCORTISONE SOD SUCCINATE 100 MG/2 ML VIAL IV SCH (17:12)
[2024-12-09 20:46] LABS: BASOPHILS % (AUTO) 0.1 % (0.0-2.0); HEMATOCRIT 41 % (39-51); HEMOGLOBIN 13.1 g/dL (13.5-17.5); LYMPHOCYTES # (AUTO) 0.3 K/uL (0.8-4.8); LYMPHOCYTES % (AUTO) 1.3 % (20.0-44.0); MEAN CORPUSCULAR HEMOGLOBIN 29 PG (26.0-33.0); MEAN CORPUSCULAR HGB CONC 32 g/dl (31.0-36.0); MEAN CORPUSCULAR VOLUME 91 fL (80-96); MONOCYTES # (AUTO) 0.9 K/uL (0.1-1.30); MONOCYTES % (AUTO) 4.7 % (2.0-12.0); NEUTROPHILS # (AUTO) 18.4 K/uL (1.8-8.9); NEUTROPHILS % (AUTO) 93.9 % (43.0-81.0); PLATELET COUNT (AUTO) 55 K/uL (150-450); RED BLOOD CELL COUNT(AUTO) 4.49 MIL/uL (4.5-6.0); RED CELL DISTRIBUTION WIDTH 17.6 % (11.5-15.0); WHITE BLOOD COUNT (AUTO) 19.6 K/uL (4.3-11.0)
[2024-12-09 20:59] LABS: CALCIUM, SERUM 7.4 mg/dL (8.5-10.1); CREATININE 0.7 mg/dL (0.6-1.3); POTASSIUM 3.9 mmol/L (3.5-5.1)
[2024-12-09 21:44] LABS: LYMPHOCYTES % (MANUAL) 3 % (16-48); MONOCYTES % (MANUAL) 4 % (0-11.0); NEUTROPHILS % (MANUAL) 93 (42-76); PLATELET ESTIMATE DECREASED
[2024-12-09 21:45] LABS: ANISOCYTOSIS 1+
[2024-12-10] VITALS (26 sets, daily range): BP systolic 84–147; BP diastolic 31–111; TEMP 98–99; O2SAT 94–99
[2024-12-10 04:11] LABS: BASOPHILS % (AUTO) 0.2 % (0.0-2.0); HEMATOCRIT 37 % (39-51); HEMOGLOBIN 12.3 g/dL (13.5-17.5); LYMPHOCYTES # (AUTO) 0.4 K/uL (0.8-4.8); MEAN CORPUSCULAR HEMOGLOBIN 30 PG (26.0-33.0); MEAN CORPUSCULAR HGB CONC 33 g/dl (31.0-36.0); MEAN CORPUSCULAR VOLUME 91 fL (80-96); MONOCYTES % (AUTO) 5.1 % (2.0-12.0); NEUTROPHILS # (AUTO) 17.4 K/uL (1.8-8.9); NEUTROPHILS % (AUTO) 92.7 % (43.0-81.0); PLATELET COUNT (AUTO) 55 K/uL (150-450); RED BLOOD CELL COUNT(AUTO) 4.09 MIL/uL (4.5-6.0); RED CELL DISTRIBUTION WIDTH 17.4 % (11.5-15.0); WHITE BLOOD COUNT (AUTO) 18.8 K/uL (4.3-11.0)
[2024-12-10 04:26] LABS: INR 1.78 (0.91-1.10); PARTIAL THROMBOPLASTIN TIME 40.7 SEC (24.3-34.3); PROTHROMBIN TIME 18.2 SECS (9.2-11.1)
[2024-12-10 04:33] LABS: BILIRUBIN,DIRECT 0.8 mg/dL (0.0-0.2); BILIRUBIN,TOTAL 1.7 mg/dL (0.2-1.0); CALCIUM, SERUM 7.4 mg/dL (8.5-10.1); CREATININE 0.7 mg/dL (0.6-1.3); POTASSIUM 3.9 mmol/L (3.5-5.1); TOTAL PROTEIN, SERUM 4.3 g/dL (6.4-8.2)
[2024-12-10 04:48] LABS: ALBUMIN 1.4 g/dL (3.4-5.0)
[2024-12-10 05:42] LABS: BASOPHILS % (MANUAL) 0 % (0.0-2.0); EOSINOPHILS % (MANUAL) 0 % (0-4); LYMPHOCYTES % (MANUAL) 7 % (16-48); MONOCYTES % (MANUAL) 5 % (0-11.0); NEUTROPHILS % (MANUAL) 88 (42-76)
[2024-12-10 05:43] LABS: ANISOCYTOSIS 1+; PLATELET ESTIMATE DECREASED
[2024-12-10] MEDS: IV D5/0.45 NACL 1,000 ML IV ONE (08:23)
[2024-12-10] MEDS: VANCOMYCIN 1 GM in IV D5W 250ml IV SCH (11:32)
[2024-12-10] MEDS: hydrALAZINE HCL IV 20 MG VIAL IV PRN (20:59)
[2024-12-11] VITALS (32 sets, daily range): BP systolic 93–156; BP diastolic 58–95; TEMP 98–99.4; O2SAT 96–100
[2024-12-11 04:11] LABS: BASOPHILS % (AUTO) 0.1 % (0.0-2.0); EOSINOPHILS % (AUTO) 0.1 % (0.0-6.0); HEMATOCRIT 39 % (39-51); HEMOGLOBIN 12.6 g/dL (13.5-17.5); LYMPHOCYTES # (AUTO) 0.4 K/uL (0.8-4.8); LYMPHOCYTES % (AUTO) 2.7 % (20.0-44.0); MEAN CORPUSCULAR HEMOGLOBIN 30 PG (26.0-33.0); MEAN CORPUSCULAR HGB CONC 33 g/dl (31.0-36.0); MEAN CORPUSCULAR VOLUME 92 fL (80-96); MONOCYTES # (AUTO) 0.9 K/uL (0.1-1.30); MONOCYTES % (AUTO) 5.7 % (2.0-12.0); NEUTROPHILS # (AUTO) 13.8 K/uL (1.8-8.9); NEUTROPHILS % (AUTO) 91.4 % (43.0-81.0); RED CELL DISTRIBUTION WIDTH 18.3 % (11.5-15.0); WHITE BLOOD COUNT (AUTO) 15.1 K/uL (4.3-11.0)
[2024-12-11 04:21] LABS: BILIRUBIN,DIRECT 0.7 mg/dL (0.0-0.2); BILIRUBIN,TOTAL 1.5 mg/dL (0.2-1.0); CALCIUM, SERUM 7.4 mg/dL (8.5-10.1); CREATININE 0.7 mg/dL (0.6-1.3); POTASSIUM 3.7 mmol/L (3.5-5.1); TOTAL PROTEIN, SERUM 4.3 g/dL (6.4-8.2)
[2024-12-11 04:43] LABS: ALBUMIN 1.4 g/dL (3.4-5.0); PLATELET COUNT (AUTO) 50 K/uL (150-450)
[2024-12-11 05:23] LABS: LYMPHOCYTES % (MANUAL) 2 % (16-48); MONOCYTES % (MANUAL) 3 % (0-11.0); NEUTROPHILS % (MANUAL) 95 (42-76); PLATELET ESTIMATE DECREASED
[2024-12-11 05:24] LABS: ANISOCYTOSIS 1+
[2024-12-11] MEDS ORDERED: DC PROPOFOL WHEN EXTUBATED XX PRN (08:30)
[2024-12-11 09:45] LABS: ABG BASE EXCESS -0.4 mmol/L (-2.0-3.0); ABG OXYGEN SATURATION 96.7 % (94.0-98.0); ABG PCO2 33.3 mmHg (35.0-48.0); ABG PH 7.454 (7.350-7.450); ABG PO2 90.7 mmHg (83.0-108.0); COHb 0.5 % (0.5-1.5); MetHb 0.2 % (0.0-1.5); SITE, ABG LEFT RADIAL
[2024-12-12] VITALS (49 sets, daily range): BP systolic 80–135; BP diastolic 50–92; TEMP 98.2–99; O2SAT 92–100
[2024-12-12 03:47] LABS: BASOPHILS % (AUTO) 0.1 % (0.0-2.0); EOSINOPHILS % (AUTO) 0.2 % (0.0-6.0); HEMATOCRIT 40 % (39-51); LYMPHOCYTES # (AUTO) 0.3 K/uL (0.8-4.8); LYMPHOCYTES % (AUTO) 2.2 % (20.0-44.0); MEAN CORPUSCULAR HEMOGLOBIN 30 PG (26.0-33.0); MEAN CORPUSCULAR HGB CONC 33 g/dl (31.0-36.0); MEAN CORPUSCULAR VOLUME 92 fL (80-96); MONOCYTES # (AUTO) 0.5 K/uL (0.1-1.30); MONOCYTES % (AUTO) 4.1 % (2.0-12.0); NEUTROPHILS # (AUTO) 11.6 K/uL (1.8-8.9); NEUTROPHILS % (AUTO) 93.4 % (43.0-81.0); RED BLOOD CELL COUNT(AUTO) 4.29 MIL/uL (4.5-6.0); RED CELL DISTRIBUTION WIDTH 18.2 % (11.5-15.0); WHITE BLOOD COUNT (AUTO) 12.4 K/uL (4.3-11.0)
[2024-12-12 04:22] LABS: BILIRUBIN,TOTAL 1.7 mg/dL (0.2-1.0); CALCIUM, SERUM 7.4 mg/dL (8.5-10.1); CREATININE 0.6 mg/dL (0.6-1.3); MAGNESIUM 2.1 mg/dL (1.8-2.4); PHOSPHORUS 3.7 mg/dL (2.5-4.9); POTASSIUM 3.8 mmol/L (3.5-5.1); TOTAL PROTEIN, SERUM 4.3 g/dL (6.4-8.2)
[2024-12-12 04:40] LABS: ALBUMIN 1.4 g/dL (3.4-5.0); PLATELET COUNT (AUTO) 44 K/uL (150-450)
[2024-12-12 05:34] LABS: BAND % (MANUAL) 2 % (0.0-5.0); LYMPHOCYTES % (MANUAL) 5 % (16-48); MONOCYTES % (MANUAL) 3 % (0-11.0); NEUTROPHILS % (MANUAL) 90 (42-76); PLATELET ESTIMATE DECREASED
[2024-12-12 05:35] LABS: ANISOCYTOSIS 1+; TARGET CELLS FEW
[2024-12-12] MEDS ORDERED: BARIUM SULFATE 98% 135 ML SUSP.RECON PO ONE (11:19)
[2024-12-12] MEDS ORDERED: PHARMACY TO CHANGE GT/NG MEDS TO PO XX PRN (12:00)
[2024-12-12] MEDS ORDERED: MAGNESIUM HYDROXIDE 30 ML UDC PO PRN (12:03)
[2024-12-12] MEDS ORDERED: MAG HYDROX/AL HYDROX/SIMETH 30 ML UDC PO PRN (12:03)
[2024-12-12] MEDS: methylPREDNISolone SOD SUCC 40 MG/ML VIAL IV SCH (12:07)
[2024-12-12] MEDS: pyRIDostigmine BROMIDE 60 MG TABLET PO SCH (12:07)
[2024-12-12] MEDS ORDERED: ACETAMINOPHEN 325 MG TABLET PO PRN (12:30)
[2024-12-12 17:38] LABS: BASOPHILS % (AUTO) 0.2 % (0.0-2.0); EOSINOPHILS % (AUTO) 0.1 % (0.0-6.0); HEMATOCRIT 36 % (39-51); HEMOGLOBIN 11.9 g/dL (13.5-17.5); LYMPHOCYTES # (AUTO) 0.3 K/uL (0.8-4.8); LYMPHOCYTES % (AUTO) 1.4 % (20.0-44.0); MEAN CORPUSCULAR HEMOGLOBIN 31 PG (26.0-33.0); MEAN CORPUSCULAR HGB CONC 33 g/dl (31.0-36.0); MEAN CORPUSCULAR VOLUME 93 fL (80-96); MONOCYTES # (AUTO) 0.5 K/uL (0.1-1.30); MONOCYTES % (AUTO) 2.8 % (2.0-12.0); NEUTROPHILS # (AUTO) 17.1 K/uL (1.8-8.9); NEUTROPHILS % (AUTO) 95.5 % (43.0-81.0); PLATELET COUNT (AUTO) 78 K/uL (150-450); RED BLOOD CELL COUNT(AUTO) 3.91 MIL/uL (4.5-6.0); RED CELL DISTRIBUTION WIDTH 18.7 % (11.5-15.0); WHITE BLOOD COUNT (AUTO) 17.9 K/uL (4.3-11.0)
[2024-12-12 18:31] LABS: LYMPHOCYTES % (MANUAL) 1 % (16-48); MONOCYTES % (MANUAL) 3 % (0-11.0); NEUTROPHILS % (MANUAL) 96 (42-76); PLATELET ESTIMATE DECREASED
[2024-12-12 18:32] LABS: ANISOCYTOSIS 1+; STOMATOCYTES FEW
[2024-12-12] MEDS: PROPRANOLOL HCL 10 MG TABLET PO SCH (21:00)
[2024-12-12] MEDS: PHENYLEPHRINE 50 MG in IV NS 0.9% 245 ML IV PRN (21:42)
[2024-12-13] VITALS (92 sets, daily range): BP systolic 78–107; BP diastolic 29–75; TEMP 96.8–98.8; O2SAT 88–100
[2024-12-13 00:01] LABS: BASOPHILS # (AUTO) 0.1 K/uL (0.0-0.2); BASOPHILS % (AUTO) 0.4 % (0.0-2.0); HEMATOCRIT 34 % (39-51); LYMPHOCYTES # (AUTO) 0.3 K/uL (0.8-4.8); LYMPHOCYTES % (AUTO) 1.4 % (20.0-44.0); MEAN CORPUSCULAR HEMOGLOBIN 30 PG (26.0-33.0); MEAN CORPUSCULAR HGB CONC 32 g/dl (31.0-36.0); MEAN CORPUSCULAR VOLUME 92 fL (80-96); MONOCYTES % (AUTO) 4.5 % (2.0-12.0); NEUTROPHILS # (AUTO) 20.2 K/uL (1.8-8.9); NEUTROPHILS % (AUTO) 93.7 % (43.0-81.0); PLATELET COUNT (AUTO) 96 K/uL (150-450); RED BLOOD CELL COUNT(AUTO) 3.73 MIL/uL (4.5-6.0); RED CELL DISTRIBUTION WIDTH 18.8 % (11.5-15.0); WHITE BLOOD COUNT (AUTO) 21.6 K/uL (4.3-11.0)
[2024-12-13 04:43] LABS: EOSINOPHILS % (AUTO) 0.1 % (0.0-6.0); HEMATOCRIT 34 % (39-51); HEMOGLOBIN 10.8 g/dL (13.5-17.5); LYMPHOCYTES # (AUTO) 0.4 K/uL (0.8-4.8); LYMPHOCYTES % (AUTO) 1.8 % (20.0-44.0); MEAN CORPUSCULAR HEMOGLOBIN 30 PG (26.0-33.0); MEAN CORPUSCULAR HGB CONC 32 g/dl (31.0-36.0); MEAN CORPUSCULAR VOLUME 93 fL (80-96); MONOCYTES # (AUTO) 1.2 K/uL (0.1-1.30); MONOCYTES % (AUTO) 5.6 % (2.0-12.0); NEUTROPHILS # (AUTO) 20.7 K/uL (1.8-8.9); NEUTROPHILS % (AUTO) 92.5 % (43.0-81.0); PLATELET COUNT (AUTO) 96 K/uL (150-450); RED BLOOD CELL COUNT(AUTO) 3.59 MIL/uL (4.5-6.0); WHITE BLOOD COUNT (AUTO) 22.4 K/uL (4.3-11.0)
[2024-12-13 04:58] LABS: BILIRUBIN,TOTAL 2.1 mg/dL (0.2-1.0); CALCIUM, SERUM 7.2 mg/dL (8.5-10.1); CREATININE 0.6 mg/dL (0.6-1.3); PHOSPHORUS 3.1 mg/dL (2.5-4.9); POTASSIUM 4.7 mmol/L (3.5-5.1); TOTAL PROTEIN, SERUM 3.6 g/dL (6.4-8.2)
[2024-12-13 05:13] LABS: ALBUMIN 1.1 g/dL (3.4-5.0)
[2024-12-13 05:26] LABS: ANISOCYTOSIS 1+; BAND % (MANUAL) 3 % (0.0-5.0); BASOPHILS % (MANUAL) 0 % (0.0-2.0); EOSINOPHILS % (MANUAL) 0 % (0-4); LYMPHOCYTES % (MANUAL) 4 % (16-48); MONOCYTES % (MANUAL) 4 % (0-11.0); NEUTROPHILS % (MANUAL) 89 (42-76); PLATELET ESTIMATE DECREASED
[2024-12-13] MEDS ORDERED: IV NS 0.9% 250 ML IV PRN (07:00)
[2024-12-13] MEDS: methylPREDNISolone SOD SUCC 40 MG/ML VIAL IV SCH ×2 (08:56→21:50)
[2024-12-13] MEDS ORDERED: predniSONE 20 MG TABLET PO SCH (09:00)
[2024-12-13] MEDS: IV D5/ 0.9% NACL 1,000 ML IV PRN (09:00)
[2024-12-13] MEDS: IV D5/0.45 NACL 1,000 ML IV PRN (11:07)
[2024-12-13] MEDS: IV NS 0.9% 1,000 ML IV ONE (14:06)
[2024-12-13 16:33] LABS: HEMOGLOBIN 10.6 g/dL (13.5-17.5)
[2024-12-14] VITALS (95 sets, daily range): BP systolic 53–120; BP diastolic 24–84; TEMP 96.8–97.4; O2SAT 84–100
[2024-12-14 04:55] LABS: BASOPHILS % (AUTO) 0.1 % (0.0-2.0); HEMATOCRIT 30 % (39-51); HEMOGLOBIN 10.1 g/dL (13.5-17.5); LYMPHOCYTES # (AUTO) 0.3 K/uL (0.8-4.8); LYMPHOCYTES % (AUTO) 1.3 % (20.0-44.0); MEAN CORPUSCULAR HEMOGLOBIN 31 PG (26.0-33.0); MEAN CORPUSCULAR HGB CONC 33 g/dl (31.0-36.0); MEAN CORPUSCULAR VOLUME 93 fL (80-96); MONOCYTES # (AUTO) 0.8 K/uL (0.1-1.30); MONOCYTES % (AUTO) 4.2 % (2.0-12.0); NEUTROPHILS # (AUTO) 18.9 K/uL (1.8-8.9); NEUTROPHILS % (AUTO) 94.4 % (43.0-81.0); PLATELET COUNT (AUTO) 81 K/uL (150-450); RED BLOOD CELL COUNT(AUTO) 3.26 MIL/uL (4.5-6.0); RED CELL DISTRIBUTION WIDTH 18.6 % (11.5-15.0)
[2024-12-14 05:22] LABS: BILIRUBIN,TOTAL 1.8 mg/dL (0.2-1.0); CALCIUM, SERUM 7.4 mg/dL (8.5-10.1); CREATININE 0.5 mg/dL (0.6-1.3); PHOSPHORUS 2.5 mg/dL (2.5-4.9); POTASSIUM 4.2 mmol/L (3.5-5.1); TOTAL PROTEIN, SERUM 3.9 g/dL (6.4-8.2)
[2024-12-14 05:30] LABS: ALBUMIN 1.1 g/dL (3.4-5.0)
[2024-12-14 05:44] LABS: ANISOCYTOSIS 1+; BAND % (MANUAL) 4 % (0.0-5.0); BASOPHILS % (MANUAL) 0 % (0.0-2.0); EOSINOPHILS % (MANUAL) 0 % (0-4); LYMPHOCYTES % (MANUAL) 3 % (16-48); MONOCYTES % (MANUAL) 5 % (0-11.0); NEUTROPHILS % (MANUAL) 88 (42-76); PLATELET ESTIMATE DECREASED
[2024-12-14] MEDS: HYDROCORTISONE SOD SUCCINATE 100 MG/2 ML VIAL IV SCH ×2 (12:29→14:52)
[2024-12-14] MEDS: PROSOURCE / PROSTAT (PYXIS) 30 ML UDC GT SCH (16:08)
[2024-12-14] MEDS: PANTOPRAZOLE 40 MG/PACK PACK PO SCH (20:21)
[2024-12-14] MEDS ORDERED: VASOPRESSIN INJ 20 UNIT/ML VIAL ONE (22:52)
[2024-12-14] MEDS: VASOPRESSIN INJ 40 UNIT in IV NS 0.9% 38 ML IV PRN (23:04)
[2024-12-14] MEDS: IV NS 0.9% 250 ML IV ONE (23:21)
[2024-12-15] VITALS (120 sets, daily range): BP systolic 31–94; BP diastolic 11–74; TEMP 96.5–98; O2SAT 65–100
[2024-12-15] MEDS: NOREPINEPHRINE 8MG/250ML RTU 250 ML IV ONE ×2 (00:39→05:11)
[2024-12-15] MEDS: NOREPINEPHRINE 8 MG in IV D5W 242 ML IV PRN (00:47)
[2024-12-15] MEDS ORDERED: ALBUMIN 25% 50 ML IV ONE (01:07)
[2024-12-15] MEDS: ALBUMIN 25% 12.5 GM in PREMIX 1 EA IV STA (01:17)
[2024-12-15 02:21] LABS: HEMOGLOBIN 6.1 g/dL (13.5-17.5)
[2024-12-15] MEDS: IV NS 0.9% 1,000 ML IV ONE (02:50)
[2024-12-15] MEDS ORDERED: PEG 3350/NA SULF,BICARB,CL/KCL 4,000 ML BOTTLE NG SCH (03:30)
[2024-12-15] MEDS: PROPOFOL 100 ML IV PRN (03:30)
[2024-12-15] MEDS: PHENYLEPHRINE 10 MG/ML VIAL ONE ×2 (03:52→06:23)
[2024-12-15 06:14] LABS: BASOPHILS # (AUTO) 0.1 K/uL (0.0-0.2); BASOPHILS % (AUTO) 0.4 % (0.0-2.0); EOSINOPHILS % (AUTO) 0.1 % (0.0-6.0); HEMATOCRIT 24 % (39-51); HEMOGLOBIN 7.7 g/dL (13.5-17.5); LYMPHOCYTES # (AUTO) 0.4 K/uL (0.8-4.8); LYMPHOCYTES % (AUTO) 1.8 % (20.0-44.0); MEAN CORPUSCULAR HEMOGLOBIN 31 PG (26.0-33.0); MEAN CORPUSCULAR HGB CONC 32 g/dl (31.0-36.0); MEAN CORPUSCULAR VOLUME 97 fL (80-96); MONOCYTES # (AUTO) 1.6 K/uL (0.1-1.30); MONOCYTES % (AUTO) 6.7 % (2.0-12.0); NEUTROPHILS # (AUTO) 22.5 K/uL (1.8-8.9); RED BLOOD CELL COUNT(AUTO) 2.48 MIL/uL (4.5-6.0); RED CELL DISTRIBUTION WIDTH 17.7 % (11.5-15.0); WHITE BLOOD COUNT (AUTO) 24.7 K/uL (4.3-11.0)
[2024-12-15 06:24] LABS: PLATELET COUNT (AUTO) 49 K/uL (150-450)
[2024-12-15] MEDS ORDERED: PHYTONADIONE IV ONE (08:00)
[2024-12-15] MEDS ORDERED: D5W IV ONE (08:00)
[2024-12-15] MEDS ORDERED: Sodium Bicarbonate 100 MEQ in IV NS 0.9% 1,000 ML IV PRN (08:00)
[2024-12-15] MEDS: PHYTONADIONE INJ 10 MG/1 ML AMPUL SQ ONE (08:21)
[2024-12-15] MEDS ORDERED: SODIUM BICARBONATE SYR 100 MEQ in IV 1/2NS 1000 ML 1,000 ML IV SCH (08:30)
[2024-12-15] MEDS: Sodium Bicarbonate 100 MEQ in IV 1/2NS 1000 ML 1,000 ML IV SCH (08:31)
[2024-12-15] MEDS: SODIUM BICARBONATE SYR 50 MEQ/50 ML DISP.SYRIN IV ONE ×3 (08:31→20:06)
[2024-12-15 09:20] LABS: BILIRUBIN,TOTAL 3.2 mg/dL (0.2-1.0); MAGNESIUM 1.4 mg/dL (1.8-2.4); PHOSPHORUS 3.6 mg/dL (2.5-4.9); POTASSIUM 3.7 mmol/L (3.5-5.1); TOTAL PROTEIN, SERUM 2.6 g/dL (6.4-8.2)
[2024-12-15] MEDS: MIDAZOLAM HCL 100 MG in IV NS 0.9% 80 ML IV PRN (09:44)
[2024-12-15] MEDS: PHENYLEPHRINE 100 MG in IV NS 0.9% 240 ML IV PRN (10:06)
[2024-12-15] MEDS: NOREPINEPHRINE 32 MG in IV NS 0.9% 218 ML IV PRN (10:07)
[2024-12-15 10:20] LABS: ALBUMIN 1.4 g/dL (3.4-5.0); CALCIUM, SERUM 5.6 mg/dL (8.5-10.1)
[2024-12-15] MEDS ORDERED: ETOMIDATE 2 MG/ML VIAL IV ONE (11:08)
[2024-12-15 13:10] LABS: CALCIUM, SERUM 7.1 mg/dL (8.5-10.1); CREATININE 1.4 mg/dL (0.6-1.3); POTASSIUM 5.2 mmol/L (3.5-5.1)
[2024-12-15 13:53] LABS: BASOPHILS % (AUTO) 0.2 % (0.0-2.0); EOSINOPHILS % (AUTO) 0.3 % (0.0-6.0); HEMATOCRIT 27 % (39-51); HEMOGLOBIN 8.2 g/dL (13.5-17.5); LYMPHOCYTES # (AUTO) 0.2 K/uL (0.8-4.8); LYMPHOCYTES % (AUTO) 7.3 % (20.0-44.0); MEAN CORPUSCULAR HEMOGLOBIN 31 PG (26.0-33.0); MEAN CORPUSCULAR HGB CONC 30 g/dl (31.0-36.0); MEAN CORPUSCULAR VOLUME 102 fL (80-96); MONOCYTES # (AUTO) 0.1 K/uL (0.1-1.30); MONOCYTES % (AUTO) 3.1 % (2.0-12.0); NEUTROPHILS # (AUTO) 2.9 K/uL (1.8-8.9); NEUTROPHILS % (AUTO) 89.1 % (43.0-81.0); RED BLOOD CELL COUNT(AUTO) 2.68 MIL/uL (4.5-6.0); RED CELL DISTRIBUTION WIDTH 18.7 % (11.5-15.0); WHITE BLOOD COUNT (AUTO) 3.2 K/uL (4.3-11.0)
[2024-12-15 13:54] LABS: LYMPHOCYTES % (MANUAL) 6 % (16-48); MONOCYTES % (MANUAL) 4 % (0-11.0); NEUTROPHILS % (MANUAL) 90 (42-76)
[2024-12-15 13:55] LABS: PLATELET ESTIMATE DECREASED
[2024-12-15 14:00] LABS: PLATELET COUNT (AUTO) 33 K/uL (150-450)
[2024-12-15 15:07] LABS: LYMPHOCYTES % (MANUAL) 12 % (16-48); MONOCYTES % (MANUAL) 3 % (0-11.0); NEUTROPHILS % (MANUAL) 85 (42-76)
[2024-12-15 15:08] LABS: PLATELET ESTIMATE DECREASED
[2024-12-16] VITALS (29 sets, daily range): BP systolic 32–74; BP diastolic 12–49; TEMP 96.8–96.9; O2SAT 70–90
[2024-12-16] MEDS ORDERED: MEROPENEM 1 G in IV NS 0.9% 100 ML IV SCH ×2
[2024-12-16] MEDS: MEROPENEM 500MG/NS 50 ML PB IV ONE (00:50)
[2024-12-16] MEDS: MEROPENEM 1 G in IV NS 0.9% 100 ML IV ONE (00:50)
== END 2024-12-16 18:00 | DRG 42 ==
LOC: ER 12:31 → TELE 16:29 → TELE1 16:40 → MEDSG1 17:27 → ICU 11-25 07:59
PROVIDERS: ADMIT Nurse Practitioner Acute Care; ATTEND Nurse Practitioner Acute Care
PROC: 5A1955Z Respiratory Ventilation, Greater than 96 Consecutive Hours (ICD-10-PCS; principal; 2024-11-25)
PROC: 0BH17EZ Insertion of Endotracheal Airway into Trachea, Via Natural or Artificial Opening (ICD-10-PCS; 2024-11-25)
PROC: 05HB33Z Insertion of Infusion Device into Right Basilic Vein, Percutaneous Approach (ICD-10-PCS; 2024-11-25)
PROC: 0BH17EZ Insertion of Endotracheal Airway into Trachea, Via Natural or Artificial Opening (ICD-10-PCS; 2024-12-04)
PROC: 5A1945Z Respiratory Ventilation, 24-96 Consecutive Hours (ICD-10-PCS; 2024-12-04)
PROC: 302 Administration, Circulatory, Transfusion (ICD-10-PCS; 2024-12-04)
PROC: 30233N1 Transfusion of Nonautologous Red Blood Cells into Peripheral Vein, Percutaneous Approach (ICD-10-PCS; 2024-12-04)
PROC: 02HV33Z Insertion of Infusion Device into Superior Vena Cava, Percutaneous Approach (ICD-10-PCS; 2024-12-04)
PROC: B548ZZA Ultrasonography of Superior Vena Cava, Guidance (ICD-10-PCS; 2024-12-04)
PROC: 30233R1 Transfusion of Nonautologous Platelets into Peripheral Vein, Percutaneous Approach (ICD-10-PCS; 2024-12-08)
PROC: 0DJ08ZZ Inspection of Upper Intestinal Tract, Via Natural or Artificial Opening Endoscopic (ICD-10-PCS; 2024-12-13)
PROC: 0DB68ZX Excision of Stomach, Via Natural or Artificial Opening Endoscopic, Diagnostic (ICD-10-PCS; 2024-12-13)
PROC: 5A1945Z Respiratory Ventilation, 24-96 Consecutive Hours (ICD-10-PCS; 2024-12-15)
PROC: 0BH17EZ Insertion of Endotracheal Airway into Trachea, Via Natural or Artificial Opening (ICD-10-PCS; 2024-12-15)
DX: G70.01 Myasthenia gravis with (acute) exacerbation (principal); J96.01 Acute respiratory failure with hypoxia; D65 Disseminated intravascular coagulation [defibrination syndrome]; J69.0 Pneumonitis due to inhalation of food and vomit; A41.9 Sepsis, unspecified organism; K72.00 Acute and subacute hepatic failure without coma; J95.851 Ventilator associated pneumonia; K76.7 Hepatorenal syndrome; R57.1 Hypovolemic shock; R65.21 Severe sepsis with septic shock; G61.0 Guillain-Barre syndrome; D68.9 Coagulation defect, unspecified; I46.9 Cardiac arrest, cause unspecified; E44.0 Moderate protein-calorie malnutrition; K26.4 Chronic or unspecified duodenal ulcer with hemorrhage; N17.0 Acute kidney failure with tubular necrosis; G92.8 Other toxic encephalopathy; K76.6 Portal hypertension; M48.56XA Collapsed vertebra, not elsewhere classified, lumbar region, initial encounter for fracture; R62.7 Adult failure to thrive; J96.02 Acute respiratory failure with hypercapnia; E87.20 Acidosis, unspecified; K74.60 Unspecified cirrhosis of liver; E87.5 Hyperkalemia; M89.8X9 Other specified disorders of bone, unspecified site; E88.09 Other disorders of plasma-protein metabolism, not elsewhere classified; K29.70 Gastritis, unspecified, without bleeding; K20.90 Esophagitis, unspecified without bleeding; K76.82 Hepatic encephalopathy; Y84.8 Other medical procedures as the cause of abnormal reaction of the patient, or of later complication, without mention of misadventure at the time of the procedure; Y92.009 Unspecified place in unspecified non-institutional (private) residence as the place of occurrence of the external cause; Z87.891 Personal history of nicotine dependence; Z99.11 Dependence on respirator [ventilator] status; Z66 Do not resuscitate; J90 Pleural effusion, not elsewhere classified; I10 Essential (primary) hypertension; Z59.71 Insufficient health insurance coverage; Z79.52 Long term (current) use of systemic steroids; H70.90 Unspecified mastoiditis, unspecified ear; I95.89 Other hypotension; E87.70 Fluid overload, unspecified; E86.1 Hypovolemia; D62 Acute posthemorrhagic anemia; E87.0 Hyperosmolality and hypernatremia; E87.1 Hypo-osmolality and hyponatremia; E87.6 Hypokalemia; E83.51 Hypocalcemia; E66.9 Obesity, unspecified; Z68.33 Body mass index [BMI] 33.0-33.9, adult; I86.8 Varicose veins of other specified sites; G47.30 Sleep apnea, unspecified; H49.9 Unspecified paralytic strabismus; R74.01 Elevation of levels of liver transaminase levels
CPT/HCPCS: 31720; 36415; 36600; 70450-TC; 71045-TC; 71250-TC; 74230-TC; 76700-TC; 76770-TC; 80048-TC; 80053-TC; 80061-TC; 80076-TC; 80202-TC; 81001; 82105; 82140-TC; 82550-TC; 82570-TC; 82607-TC; 82784; 82803-TC; 82962-TC; 83605-TC; 83690-TC; 83735-TC; 83880; 83921; 83970; 84100-TC; 84155; 84165; 84207; 84300-TC; 84425; 84443-TC; 84478-TC; 84484-TC; 85025-TC; 85027-TC; 85378-TC; 85610-TC; 85652-TC; 85730-TC; 86140-TC; 86225; 86235; 86850-TC; 87040-TC; 87070-TC; 87081-TC; 87086-TC; 87205-TC; 92526; 92611-TC; 93307-TC; 93880-TC; 93970-TC; 94002-TC; 94003-TC; 94760-TC; 94799-TC; 95819-TC; 97110-TC; 97112-TC; 97116-TC; 97164; 97530-TC; 97535-TC; 99082-TC; A4216; A4223; A6213; A9563; G0378; J0360; J0612; J0692; J1572; J1650; J1720; J1815; J1938; J2185; J2250; J2405; J2470; J2704; J2919; J3370; J3430; J3475; J3480; J3490; J7030; J7040; J7042; J7050; J7060; P9016; P9017; P9034; P9047; Q9967